=== PATIENT | female | born 1950 | race Caucasian/White ===

== ENCOUNTER → 2018-10-19 15:58 | Outpatient (CLI) | payer MEDICARE, OTHER, SELFPAY ==
--- NOTE | 2018-10-19 | DI.MG.S_ITS ---
BILATERAL DIGITAL SCREENING MAMMOGRAM 3D/2D WITH CAD: 10/19/2018 CLINICAL: Routine screening. Comparison is made to exams dated: 10/15/2017 mammogram - [facility], 10/06/2016 mammogram, and 10/02/2015 mammogram - [facility]. The tissue of both breasts is extremely dense, which lowers the sensitivity of mammography. Current study was also evaluated with a Computer Aided Detection (CAD) system. No significant masses, calcifications, or other findings are seen in either breast. There has been no significant interval change. IMPRESSION: NEGATIVE There is no mammographic evidence of malignancy. A 1 year screening mammogram is recommended. This exam was interpreted at Station ID: [id number]. NOTE: For mammograms, a report in lay terms will be sent to the patient. Approximately 15% of breast malignancies will not be visualized mammographically. In the management of a palpable breast mass, a negative mammogram must not discourage biopsy of a clinically suspicious lesion. Electronically Signed By: Barbie rosenberg/terrie:10/19/2018 16:49:56 letter sent: Normal Exam ACR BI-RADS Category 1: Negative [id number]
--- NOTE | 2018-11-03 08:36 | ONC.SCHED ---
tried calling patient 3 times, number is disconnected
== END ==
PROVIDERS: Family Provider Internal Medicine; PCP Internal Medicine; Visit Provider Internal Medicine
DX: Z12.31 Encounter for screening mammogram for malignant neoplasm of breast (principal)
CPT/HCPCS: 77063; 77067

== ENCOUNTER → 2019-12-12 09:01 | Outpatient (CLI) | payer MEDICARE, OTHER, SELFPAY ==
[2019-12-12 10:26] LABS: BUN Creatinine Ratio 22.1 (6-22); Blood Urea Nitrogen 15 mg/dL (7-17); Calcium 9.6 mg/dL (8.4-10.2); Carbon Dioxide 29 mmol/L (22-32); Chloride 103 mmol/L (98-107); Cholesterol 200 mg/dL (140-199); Estimated Glomerular Filt Rate > 60.0 mL/min (>60); Glucose 86 mg/dL (80-110); HDL Cholesterol 90 mg/dL (40-60); HEMOLYSIS < 15 (0-50); LDL Cholesterol Calculated 98 mg/dL (<100); Potassium 4.1 mmol/L (3.4-5.1); Sodium 139 mmol/L (137-145); Triglycerides 58 mg/dL (35-150)
== END ==
PROVIDERS: Family Provider Internal Medicine; PCP Internal Medicine; Referring Provider Internal Medicine; Visit Provider Internal Medicine
DX: I10 Essential (primary) hypertension (principal)
CPT/HCPCS: 36415; 80048; 80061

== ENCOUNTER → 2019-12-27 13:30 | Oncology outpatient (ONC) | payer MEDICARE, OTHER, SELFPAY ==
[2018-11-21 13:01] VITALS: BP 127/83; PULSE 72; RESP 12; TEMP 36.9; O2SAT 98
[2018-11-21] MEDS: ZOLEDRONIC ACID 5 MG in SODIUM CHLORIDE 0.9% 100 ML 318.75 ML IV (13:01)
[2019-12-27 13:21] VITALS: PULSE 77; RESP 18; TEMP 36.7; O2SAT 98
[2019-12-27] MEDS: ZOLEDRONIC ACID 5 MG in SODIUM CHLORIDE 0.9% 100 ML 318.75 ML IV (13:37)
[2019-12-27 14:12] VITALS: BP 154/85
--- NOTE | 2019-12-28 15:53 | PC.NURSE ---
Pt called to let us know that she has 2 hematomas from IV start attempt, she reported no s/s of infection, no redness, swelling, just tenderness. This RN instructed her to f/u with us or provider if her condition worsens.
== END ==
PROVIDERS: Family Provider Internal Medicine; PCP Internal Medicine; Visit Provider Internal Medicine
DX: M81.0 Age-related osteoporosis without current pathological fracture (principal)
CPT/HCPCS: 96365; J3489

== ENCOUNTER → 2020-01-17 15:41 | Outpatient (CLI) | payer MEDICARE, OTHER, SELFPAY ==
--- NOTE | 2020-01-17 | DI.MG.S_ITS ---
BILATERAL DIGITAL SCREENING MAMMOGRAM 3D/2D WITH CAD: 01/17/2020 CLINICAL: Routine screening. Comparison is made to exams dated: 10/19/2018 mammogram, 10/15/2017 mammogram - [facility], and 10/06/2016 mammogram - [facility]. The tissue of both breasts is extremely dense, which lowers the sensitivity of mammography. Current study was also evaluated with a Computer Aided Detection (CAD) system. There is a focal asymmetry in the left breast at 6 o'clock anterior depth. No other significant masses, calcifications, or other findings are seen in either breast. IMPRESSION: INCOMPLETE: NEEDS ADDITIONAL IMAGING EVALUATION The focal asymmetry in the left breast is indeterminate. Additional views with possible ultrasound are recommended. This exam was interpreted at Station ID: [id number]. NOTE: For mammograms, a report in lay terms will be sent to the patient. Approximately 15% of breast malignancies will not be visualized mammographically. In the management of a palpable breast mass, a negative mammogram must not discourage biopsy of a clinically suspicious lesion. Electronically Signed By: Barbie Vidales M.D. lk/:01/18/2020 16:36:06 letter sent: Additional Imaging Needed ACR BI-RADS Category 0: Incomplete [id number]
== END ==
PROVIDERS: Family Provider Internal Medicine; PCP Internal Medicine; Referring Provider Internal Medicine; Visit Provider Internal Medicine
DX: Z12.31 Encounter for screening mammogram for malignant neoplasm of breast (principal)
CPT/HCPCS: 77063; 77067

== ENCOUNTER → 2020-02-07 13:40 | Outpatient (CLI) | payer MEDICARE, OTHER, SELFPAY ==
--- NOTE | 2020-02-07 | DI.MG.S_ITS ---
UNILATERAL LEFT DIGITAL DIAGNOSTIC MAMMOGRAM 3D/2D WITH ADDITIONAL VIEWS: 02/07/2020 CLINICAL: Additional evaluation requested from prior study. Comparison is made to exams dated: 01/17/2020 mammogram, 10/19/2018 mammogram, and 10/15/2017 mammogram - [facility]. The tissue of left breast is extremely dense, which lowers the sensitivity of mammography. The previously seen focal asymmetry in the left breast is no longer visualized, presumably secondary to superimposed fibroglandular breast tissue on the prior exam. No significant masses, calcifications, or other findings are seen in the breast. IMPRESSION: NEGATIVE There is no mammographic evidence of malignancy. A 1 year screening mammogram is recommended. This exam was interpreted at Station ID: [id number]. NOTE: For mammograms, a report in lay terms will be sent to the patient. Approximately 15% of breast malignancies will not be visualized mammographically. In the management of a palpable breast mass, a negative mammogram must not discourage biopsy of a clinically suspicious lesion. Electronically Signed By: Emir garcia/terrie:02/07/2020 14:37:08 letter sent: Normal Exam ACR BI-RADS Category 1: Negative [id number]
== END ==
PROVIDERS: Family Provider Internal Medicine; PCP Internal Medicine; Referring Provider Internal Medicine; Visit Provider Internal Medicine
DX: R92.8 Other abnormal and inconclusive findings on diagnostic imaging of breast (principal)
CPT/HCPCS: 77065; G0279

== ENCOUNTER → 2020-05-04 15:06 | Outpatient (CLI) | payer MEDICARE, OTHER, SELFPAY ==
--- NOTE | 2020-05-04 15:08 | DI.RAD.S_ITS ---
PROCEDURE: XR HIP W PEL IF DONE RT 2V INDICATIONS: hip djd TECHNIQUE: 2 views of the hip were acquired. COMPARISON: None. FINDINGS: Bones: No fractures or dislocations. No suspicious bony lesions. The visualized pelvic ring appears intact. Soft tissues: No suspicious soft tissue calcifications or masses. IMPRESSION: No fracture. No osseous lesion. If symptoms and/or clinical suspicion for pathology persists, further assessment with repeat radiographs (7-10 days) or advanced imaging (e.g. CT, MRI or bone scan) may be helpful. Dictated by: Rosio Henderson MD, PhD on 05/04/2020 at 15:19 Approved by: Rosio Henderson MD, PhD on 05/04/2020 at 15:20
== END ==
PROVIDERS: Family Provider Internal Medicine; PCP Internal Medicine; Referring Provider Physical Medicine & Rehabilitation; Visit Provider Physical Medicine & Rehabilitation
DX: M16.11 Unilateral primary osteoarthritis, right hip (principal)
CPT/HCPCS: 73502

== ENCOUNTER 2020-05-07 11:11 | Outpatient (CLI) | payer MEDICARE, OTHER, SELFPAY ==
[2020-05-07] VITALS (9 sets, daily range): BP systolic 151–180; BP diastolic 65–93; PULSE 68–86; RESP 12–20; TEMP 36.8; O2SAT 97–100
--- NOTE | 2020-05-07 11:14 | DI.RAD.S_ITS ---
PROCEDURE: PAIN L/S TRANSFORAMINAL INJECT INDICATIONS: SPONDYLOSIS COMPARISON: None. FINDINGS: Fluoroscopic spot filming was performed to verify placement of spinal needles at the right L4-5 level(s), as labeled on the films. Appropriate location(s) of the needle tip(s) was confirmed by injection of iodinated contrast. IMPRESSION: Successful needle tip localization for transforaminal right-sided epidural steroid injection at L4-L5. Dictated by: eGoffrey Hill M.D. on 05/07/2020 at 14:17 Approved by: Geoffrey Hill M.D. on 05/07/2020 at 14:17
[2020-05-07 13:05] LABS: COVID19 -Nasal RAPID Negative (Negative)
[2020-05-07] MEDS: DEXAMETHASONE 10 MG/ML VIAL 20 MG INJ (13:26)
[2020-05-07] MEDS: fentaNYL 100 MCG/2 ML INJ 50 MCG IV (13:26)
[2020-05-07] MEDS: BUPIVACAINE 0.25% (PF) VIAL 2 ML INJ (13:26)
[2020-05-07] MEDS: BETAMETHASONE 30 MG/5 ML MDV 6 MG INJ (13:26)
--- NOTE | 2020-05-07 13:41 | P.PCN_ITS ---
Date/Time/Diagnoses Date of procedure: 05/07/20 Time of procedure: 13:42 Pre-procedure diagnosis: 1. FORAMINAL STENOSIS WITH LE SYMPTOMS Post-procedure diagnosis: same Procedure Notes Procedure: 1. FLUOROSCOPICALLY GUIDED CONTRAST CONTROLLED TRANSFORAMINAL EPIDURAL STEROID INJECTION - RIGHT L4/5 TFESI Indications: Constanza is referred by Dr. Jones for treatment of Foraminal Stenosis with Right LE Symptoms Physician: Flaco Kirkland Total Fluoroscopy time (seconds): 7 Total sedation minutes: 10 Complications: none Procedure in detail & Post-procedure care: FINDINGS Foraminal Nerve Root Compression secondary to disc disease and facet hypertrophy DESCRIPTION OF PROCEDURE Following review of allergy and review of potential side effects and complications, including, but not necessarily limited to, infection, allergic reaction, local tissue breakdown, stroke, temporary or permanent nerve injury, paralysis, and possible , the patient indicated that the patient understood and agreed to proceed. An informed consent document was signed by the patient, witnessed by a nurse, and placed in the patient's chart. Additionally, other treatment options including medications, modalities, and physical therapy were reviewed with the patient. After review of previous anaesthesic history and IV conscious sedation the patient was deemed safe to proceed with today?s procedure with IV conscious sedation as ASA class II designation. Safety time-out was performed to confirm patient ID, procedure to be performed and site of procedure. IV sedation was accomplished with a combination of 2mg of Versed and 50mcg of Fentanyl was administered by the RN after DO order, titrated to patient comfort during the course of the procedure while the patient remained responsive to all verbal co mmands In the prone position following sterile prep and drape of the lumbar region, the Right L4/5 posterior neuroforamen was identified fluoroscopically. The skin was anesthetized via a 25-gauge 1.5-inch needle with 1% lidocaine solution. At this point, a 25-gauge 3.5-inch spinal needle was atraumatically introduced and advanced under fluoroscopic guidance through the posterior Right L4/5 n euroforamen to approximately the anterior aspect of the canal. Depth was confirmed on lateral view. Following negative aspiration, injection of approximately 1.5cc of Isovue 200 under live fluoroscopy in the AP view confirmed excellent flow along the nerve root, into the epidural space without vascular or intrathecal uptake observed Radiological data, including multiple fluoroscopic views of the lumbosacral spine, reveal a spinal needle at the right L4/5 posterior neuroforamen. Subsequent views show flow of contrast material flowing superiorly and inferiorly along the nerve root confirming epidural flow. Subsequently, a test dose of 1.5 cc of 1% lidocaine solution was administered and patient was observed for two minutes for signs or symptoms of complications, including abdominal pain, shortness of breath, bilateral upper or lower extremity weakness, nausea and vomiting, prior to steroid injection. At this point, a total of 3cc or 20mg of dexamethasone and 6mg of betamethasone was injected without incident. The procedure tolerated the procedure well without signs or symptoms of complications prior to transfer to the recovery area continued monitoring without incident. The patient was then transferred to the recovery area where they were observed for an appropriate time after the injection. The patient reported a VAS score of 7 prior to the procedure and a post-p rocedure VAS of 1. POST OP INSTRUCTIONS The patient was provided a Pain Log to continue to record their response to the target-specific procedure prior to follow-up visit with their referring physician. Additionally, specific post-injection care instructions and a contact number to our office were provided if concerns arise regarding possible complications associated with the procedure are suspected.
[2020-05-07] MEDS: IOPAMIDOL 15 ML VIAL 3 ML INJ (16:32)
[2020-05-07] MEDS: MIDAZOLAM 5 MG/5 ML VIAL IV (16:33)
== END 2020-05-07 14:07 | disposition home or self-care (01) ==
LOC: RAD 11:13
PROVIDERS: Family Provider Internal Medicine; PCP Internal Medicine; Referring Provider Internal Medicine; Visit Provider Physical Medicine & Rehabilitation
DX: M48.061 Spinal stenosis, lumbar region without neurogenic claudication (principal); M51.16 Intervertebral disc disorders with radiculopathy, lumbar region; Z11.59 Encounter for screening for other viral diseases
CPT/HCPCS: 64483; 87635; 99152; J0702; J1100; J2250; J3010

== ENCOUNTER → 2020-08-06 10:50 | Outpatient (CLI) | payer MEDICARE, OTHER, SELFPAY ==
--- NOTE | 2020-08-06 10:54 | DI.RAD.S_ITS ---
PROCEDURE: XR SHOULDER RT MIN 2V INDICATIONS: shoulder impingement TECHNIQUE: 3 views of the shoulder were acquired. COMPARISON: [facility] [place], CR, SHOULDER MIN 2VW (RT), 11/08/2014, 9:47. FINDINGS: Bones: No fractures or dislocations. No suspicious bony lesions. Visualized ribs appear intact. Soft tissues: No suspicious soft tissue calcifications. IMPRESSION: Unremarkable examination. If the patient's pain or other symptoms persist, consider further evaluation with MRI Dictated by: Frandy Hewitt M.D. on 08/06/2020 at 12:29 Approved by: Frandy Hewitt M.D. on 08/06/2020 at 12:36
--- NOTE | 2020-08-06 10:54 | DI.RAD.S_ITS ---
PROCEDURE: XR KNEE RT 3V INDICATIONS: knee djd TECHNIQUE: 3 views of the knee were acquired. COMPARISON: None. FINDINGS: Bones: No fractures or dislocations. No suspicious bony lesions. No definite joint space narrowing. Soft tissues: No joint effusion. No suspicious soft tissue calcifications. IMPRESSION: Minimal degenerative changes. If the patient's pain or other symptoms persist, consider further evaluation with MRI Dictated by: Frandy Hewitt M.D. on 08/06/2020 at 12:36 Approved by: Frandy Hewitt M.D. on 08/06/2020 at 12:37
== END ==
PROVIDERS: Family Provider Internal Medicine; PCP Internal Medicine; Referring Provider Physical Medicine & Rehabilitation; Visit Provider Physical Medicine & Rehabilitation
DX: M75.41 Impingement syndrome of right shoulder (principal); M17.11 Unilateral primary osteoarthritis, right knee
CPT/HCPCS: 73030; 73562

== ENCOUNTER → 2020-10-29 08:43 | Outpatient (CLI) | payer MEDICARE, OTHER, SELFPAY ==
[2020-10-29 12:18] LABS: COVID19 -Nasal RAPID Negative (Negative)
== END ==
PROVIDERS: Family Provider Internal Medicine; PCP Internal Medicine; Visit Provider Physical Medicine & Rehabilitation
DX: Z20.822 Contact with and (suspected) exposure to COVID-19 (principal)
CPT/HCPCS: 87635; C9803

== ENCOUNTER 2020-10-31 12:23 | Outpatient (CLI) | payer MEDICARE, OTHER, SELFPAY ==
[2020-10-31] VITALS (8 sets, daily range): BP systolic 124–185; BP diastolic 54–92; PULSE 77–86; RESP 13–20; TEMP 36; O2SAT 95–100
--- NOTE | 2020-10-31 12:25 | DI.RAD.S_ITS ---
PROCEDURE: PAIN SI JOINT INJECTION INDICATIONS: SACROILIAC DISORDER COMPARISON: [facility], XA, PAIN L/SI FACET INJ/BLK 1STL, 10/31/2020, 13:49. FINDINGS: On this intraprocedural image, there is a spinal needle seen overlying the inferior aspect of the right sacroiliac joint. Appropriate position of the tip of the needle was confirmed by injection of a small amount of iodinated contrast. IMPRESSION: Intraprocedural examination within normal limits. Dictated by: Kalyan Snider M.D. on 10/31/2020 at 13:46 Approved by: Kalyan Snider M.D. on 10/31/2020 at 13:47
--- NOTE | 2020-10-31 13:24 | DI.RAD.S_ITS ---
PROCEDURE: PAIN L/SI FACET INJ/BLK 1STL INDICATIONS: SPONDYLOSIS COMPARISON: [facility], XA, PAIN SI JOINT INJECTION, 10/31/2020, 13:42. [facility], XA, PAIN L/S TRANSFORAMINAL INJECT, 05/07/2020, 14:31. FINDINGS: Fluoroscopic spot filming was performed to verify placement of a spinal needle at the L5-S1 level, as labeled on the films. Appropriate location of the needle tip was confirmed by injection of iodinated contrast. IMPRESSION: No significant intraprocedural abnormality. Dictated by: Kalyan Snider M.D. on 10/31/2020 at 13:47 Approved by: Kalyan Snider M.D. on 10/31/2020 at 13:48
[2020-10-31] MEDS: fentaNYL 100 MCG/2 ML INJ 50 MCG IV (13:35)
[2020-10-31] MEDS: MIDAZOLAM 5 MG/5 ML VIAL IV (13:36)
[2020-10-31] MEDS: IOPAMIDOL 15 ML VIAL 3 ML INJ (13:40)
[2020-10-31] MEDS: methylPREDNISolone acetate 80 MG/ML VIAL INJ (13:40)
[2020-10-31] MEDS: BUPIVACAINE 0.5% (PF) VIAL 2 ML INJ (13:40)
[2020-10-31] MEDS: BETAMETHASONE 30 MG/5 ML MDV 6 MG INJ (13:43)
--- NOTE | 2020-10-31 13:57 | PM.PROC.IR.1 ---
Date/Time/Diagnoses Date of procedure: 10/31/20 Time of procedure: 13:57 Pre-procedure diagnosis: Sacroiliac Joint Pain/DJD Post-procedure diagnosis: same Procedure Notes Procedure: Fluoroscopically guided contrast controlled left sacroiliac joint injection Indications: Constanza is referred by Dr. Jones for treatment of left sacroiliac joint DJD Physician: Flaco Kirkland Total Fluoroscopy time (seconds): 18 Total sedation minutes: 16 Complications: none Procedure in detail & Post-procedure care: DESCRIPTION OF PROCEDURE Fluoroscopic guided, contrast controlled left sacroiliac joint injection Following review of allergies and review of potential side effects and complications, including, but not necessarily limited to, infection, allergic reaction, local tissue breakdown, temporary as well as permanent nerve injury, paralysis, stroke and possible , the patient indicated that they understood and agreed to proceed. An informed consent was signed by the patient, witnessed by a nurse, and placed in the patient's chart. Additionally, other treatment options including modalities, medications, and physical therapy were reviewed with the patient. After review of previous anaesthesic history and IV conscious sedation the patient was deemed safe to proceed with today?s procedure with IV conscious sedation as ASA class II designation. Safety time-out was performed to confirm patient ID, procedure to be performed and site of procedure. IV sedation was accomplished with a combination of 3mg of Versed and 50mcg of Fentanyl administered by the RN after DO order, titrated to patient comfort during the course of the procedure while the patient remained responsive to all verbal commands. In the prone position following sterile prep and drape of the pelvic region, the hyper lucency on in the inferior aspect of the left sacroiliac joint was identified fluoroscopically the skin was anesthetized be a 25 gauge 1 eventual with approximately 2cc of 1% lidocaine solution. At this point, a 22 gauge 3inch spinal needle was atraumatically introduced and advanced under fluoroscopic guidance into the inferior aspect of the left sacroiliac joint. Following negative aspiration, approximately 0.3cc of Isovue-300 was injected confirming intra-articular placement without vascular uptake. Radiographic data, including multiple fluoroscopic views of the pelvis, reveals a spinal needle in the left sacroiliac joint hyper lucent zone. Subsequent view show flow contrast tear superiorly and inferiorly within the joint capsule without vascular intrathecal uptake. At this point a total of 1cc or 0.5% Marcaine was combined with 1cc of 80mg of depo medrol was injected without incident. The patient tolerated the procedure well without signs or symptoms of complications prior to transfer to the recovery area for further monitoring. The patient was then transferred to the recovery area with a bur observed for an appropriate time after the injection. The patient reverted a vas score of 7 prior to the procedure and postprocedure vas of 1. POSTOP INSTRUCTIONS The patient was provided with a pain like to continue to record the patient's response to the target specific procedure prior to the patient's follow-up visit with the referring physician. Additionally, specific post injection care instructions and a contact number to our office were provided if concerns arise regarding the possible complications associated with procedure are suspected.
--- NOTE | 2020-10-31 13:59 | P.PCN_ITS ---
Date/Time/Diagnoses Date of procedure: 10/31/20 Time of procedure: 13:59 Pre-procedure diagnosis: 1. FACET ARTHROPATHY, 2. AXIAL LBP, 3. MULTILEVEL DDD Post-procedure diagnosis: same Procedure Notes Procedure: 1. FLUOROSCOPICALLY GUIDED CONTRAST CONTROLLED FACET JOINT INJECTIONS RIGHT L5/S1 Indications: Constanza is referred by Dr. Jones for treatment of Axial LBP Physician: Flaco Kirkland Total Fluoroscopy time (seconds): 18 Total sedation minutes: 16 Complications: none Procedure in detail & Post-procedure care: FINDINGS Multilevel Facet Arthropathy with Clinically significant axial LBP DESCRIPTION OF PROCEDURE Fluoroscopically guided, contrast-controlled right L5/S1 facet joint injections. Following review of allergy and review of potential side effects and compli cations, including, but not necessarily limited to, infection, allergic reaction, local tissue breakdown, stroke, temporary or permanent nerve injury, paralysis, and possible , the patient indicated that the patient understood and agreed to proceed. An informed consent document was signed by the patient, witnessed by a nurse, and placed in the patient's chart. Additionally, other treatment options including medications, modalities, and physical therapy were reviewed with the patient. After review of previous anaesthesic history and IV conscious sedation the patient was deemed safe to proceed with today?s procedure with IV conscious sedation as ASA class II designation. Safety time-out was performed to confirm patient ID, procedure to be performed and site of procedure. IV sedation was accomplished with a combination of 3mg of Versed and 50mcg of Fentanyl was administered by the RN after DO order, titrated to patient comfort during the course of the procedure while the patient remained responsive to all verbal commands. In the prone position, following sterile prep and drape of the lumbar region, the posterior aspect of the right L5/S1 facet joints were identified fluoro scopically. The skin was anesthetized via a 25-gauge 1.5-inch needle with 1% lidocaine solution into the corresponding facet joints. At this point, a 22- gauge 3.5-inch spinal needle was atraumatically introduced and advanced under fluoroscopic guidance into the corresponding facet joints. Following negative aspiration, injections of approximately 0.2-cc of Isovue 200 confirmed interarticular placement without vascular uptake. Radiological data, including multiple fluoroscopic views of the lumbosacral spine, reveal a spinal needle at the right L5/S1 facet joint. Subsequent views show flow of contrast material both superiorly and inferiorly within the joint space without vascular or intrathecal uptake. At this point, a total of 0.5cc including a mixture of 0.25cc Marcaine and 0.25c c betamethasone was injected without complication into each of the corresponding facet joints. The procedure tolerated the procedure well without signs or symptoms of complications prior to transfer to the recovery area continued monitoring without incident. The patient was then transferred to the recovery area where they were observed for an appropriate period of time after the injection. The patient reported a VAS score of 7 prior to the procedure and a post-procedure VAS of 0. POST OP INSTRUCTIONS The patient was provided a Pain Log to continue to record their response to the target-specific procedure prior to follow-up visit with their referring physician. Additionally, specific post-injection care instructions and a contact number to our office were provided if concerns arise regarding possible complications associated with the procedure are suspected.
== END 2020-10-31 14:17 | disposition home or self-care (01) ==
LOC: RAD 12:25
PROVIDERS: Family Provider Internal Medicine; PCP Internal Medicine; Referring Provider Internal Medicine; Visit Provider Physical Medicine & Rehabilitation
DX: M47.817 Spondylosis without myelopathy or radiculopathy, lumbosacral region (principal); M53.3 Sacrococcygeal disorders, not elsewhere classified; M46.1 Sacroiliitis, not elsewhere classified; M51.37 Other intervertebral disc degeneration, lumbosacral region; M54.5 Low back pain
CPT/HCPCS: 27096; 64493; 99152; J0702; J1040; J2250; J3010

== ENCOUNTER → 2020-11-04 15:57 | Outpatient (CLI) | payer MEDICARE, OTHER, SELFPAY ==
[2020-11-04 16:33] LABS: Add Manual Diff / Slide Review NO; Basophils Absolute Auto 0 /uL (0-100); Basophils Percent Auto 0.4 % (0-2); Eosinophils Absolute Auto 100 /uL (0-450); Eosinophils Percent Auto 0.6 % (2-4); Hematocrit 41.6 % (36-46); Hemoglobin 13.9 g/dL (12.0-16.0); Lymphocytes Absolute Auto 2300 /uL (1100-4500); Lymphocytes Percent Auto 18.9 % (25-40); Mean Corpuscular HGB Conc 33.5 % (30-36); Mean Corpuscular Hemoglobin 31.7 PG (26-34); Mean Corpuscular Volume 94.5 fL (80-100); Monocytes Absolute Auto 700 /uL (0-900); Monocytes Percent Auto 6.1 % (3-14); Neutrophils Absolute Auto 8800 /uL (1500-7000); Platelet Count 230 X10^3/uL (150-400); Red Cell Distribution Width 13.2 % (11.6-14.8)
[2020-11-04 16:53] LABS: C-Reactive Protein Quant < 0.5 mg/dL (<1.0)
[2020-11-04 17:26] LABS: Erythrocyte Sedimentation Rate 5 MM/HR (0-20)
== END ==
PROVIDERS: Family Provider Internal Medicine; PCP Internal Medicine; Referring Provider Physical Medicine & Rehabilitation; Visit Provider Physical Medicine & Rehabilitation
DX: M25.551 Pain in right hip (principal); M51.26 Other intervertebral disc displacement, lumbar region; M47.817 Spondylosis without myelopathy or radiculopathy, lumbosacral region; M53.3 Sacrococcygeal disorders, not elsewhere classified; M70.61 Trochanteric bursitis, right hip; M70.62 Trochanteric bursitis, left hip
CPT/HCPCS: 36415; 85025; 85651; 86140; 99214

== ENCOUNTER → 2020-11-13 12:18 | Outpatient (CLI) | payer MEDICARE, OTHER, SELFPAY ==
--- NOTE | 2020-11-13 | DI.MRI.S_ITS ---
PROCEDURE: MR LUMBAR SPINE WO CON INDICATIONS: Disc displacement Pain in right hip Osteoporosis TECHNIQUE: Noncontrast sagittal T1 spin echo and T2 fast echo, sagittal STIR, axial T1 and T2 fast spin echo through the lumbar spine. In cases with scoliosis, additional coronal T2 fast spin echo may be performed. COMPARISON: [facility], MR, L-SPINE WITHOUT CONTRAST, 08/26/2017, 20:06. FINDINGS: Image quality: Excellent. Alignment and Curvature: There is trace retrolisthesis of L2 on L3, L4 on L5. Bone Marrow: Marrow is of normal overall signal. Moderate reactive endplate changes are present at L2-3, minimal throughout the remainder of the lumbar spine. Small Schmorl's nodes are noted along the endplates of L2-3 and L5-S1. No acute vertebral body compression fractures. Spinal Cord: Conus medullaris terminates at the L1 level. Visualized cord demonstrates normal signal and size. 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 It is stable. Paraspinous Soft Tissues: No paravertebral masses. Discs: Severe desiccation is present at L2-3, L5-S1, overall moderate to severe throughout the remainder of the lumbar spine. L1-L2: No disc bulge, spinal stenosis or foraminal narrowing. Mild facet and ligamentum flavum hypertrophy. No interval change. L2-L3: Mild disc bulge with asymmetric right posterior lateral position extension to the right lateral recess and proximal right foramina, more prominent when compared to prior exam. Mild spinal stenosis, progressive. Moderate right foraminal narrowing is slightly progressive. Facet and ligamentum flavum hypertrophy are present. L3-L4: Mild disc bulge with mild spinal stenosis. Mild left foraminal narrowing with facet and ligamentum flavum hypertrophy and epidural lipomatosis. Appearance is relatively stable. L4-L5: Mild disc bulge with moderate spinal stenosis. Mild right and moderate to severe left foraminal narrowing, with the latter slightly progressive. Facet and ligamentum flavum hypertrophy are present. L5-S1: Mild disc bulge with minimal spinal stenosis. Moderate left and [id number] right foraminal narrowing with facet hypertrophy. No significant interval change. IMPRESSION: 1. Multilevel degenerative changes with areas of interval progression as above. 2. Foraminal narrowing is most notable at L5-S1 secondary to facet/ligamentum flavum arthropathy. 3. Spinal stenosis is most prominent at L4-5 secondary to disc bulge with contributing effect of facet/ligamentum flavum arthropathy. Dictated by: Bernarda Davila M.D. on 11/13/2020 at 14:01 Approved by: Bernarda Davila M.D. on 11/13/2020 at 15:19
--- NOTE | 2020-11-13 12:19 | DI.MRI.S_ITS ---
PROCEDURE: MR PELIS WO/W CON INDICATIONS: R/o infection SI TECHNIQUE: Noncontrast coronal T1 spin echo and STIR, sagittal T1 spin echo with fat saturation and STIR, axial T1 spin echo and T2 fast spin echo with fat saturation. After the administration of contrast, axial/sagittal/coronal T1 spin echo with fat saturation through the sacroiliac joints. . COMPARISON: [facility], XA, PAIN SI JOINT INJECTION, 10/31/2020, 13:42. [facility], XA, PAIN L/SI FACET INJ/BLK 1STL, 10/31/2020, 13:49. FINDINGS: No sacroiliac joint effusions are seen. No periarticular soft tissue edema. Marrow fat signal intensity appears grossly preserved. There is no definite periarticular marrow edema. Chronic lumbar spondylosis and facet arthropathy. No suspicious enhancement identified. No soft tissue abscess is seen. Sacral neural foramen within normal limits. Intrapelvic contents grossly unremarkable. Subcutaneous soft tissues within normal limits. Normal muscle signal intensity. IMPRESSION: No specific MR evidence for osteomyelitis identified. No sacroiliac joint effusion. No periarticular soft tissue edema. Dictated by: Frandy Hewitt M.D. on 11/13/2020 at 14:24 Approved by: Frandy Hewitt M.D. on 11/13/2020 at 14:30
== END ==
PROVIDERS: Family Provider Internal Medicine; PCP Internal Medicine; Referring Provider Internal Medicine; Visit Provider Physical Medicine & Rehabilitation
DX: M25.551 Pain in right hip (principal); M51.26 Other intervertebral disc displacement, lumbar region; M85.852 Other specified disorders of bone density and structure, left thigh; Z78.0 Asymptomatic menopausal state; M47.816 Spondylosis without myelopathy or radiculopathy, lumbar region; M48.07 Spinal stenosis, lumbosacral region; M48.061 Spinal stenosis, lumbar region without neurogenic claudication; Z82.62 Family history of osteoporosis
CPT/HCPCS: 72148; 72197; 77080

== ENCOUNTER → 2020-11-14 12:25 | Outpatient (CLI) | payer MEDICARE, OTHER, SELFPAY ==
[2020-11-14 13:44] LABS: Add Manual Diff / Slide Review NO; Basophils Absolute Auto 100 /uL (0-100); Basophils Percent Auto 0.8 % (0-2); Eosinophils Absolute Auto 100 /uL (0-450); Eosinophils Percent Auto 1.2 % (2-4); Hematocrit 40.2 % (36-46); Hemoglobin 13.4 g/dL (12.0-16.0); Lymphocytes Absolute Auto 2500 /uL (1100-4500); Lymphocytes Percent Auto 24.5 % (25-40); Mean Corpuscular HGB Conc 33.3 % (30-36); Mean Corpuscular Hemoglobin 31.6 PG (26-34); Monocytes Absolute Auto 700 /uL (0-900); Monocytes Percent Auto 6.4 % (3-14); Neutrophils Absolute Auto 6900 /uL (1500-7000); Neutrophils Percent Auto 67.1 % (50-75); Platelet Count 257 X10^3/uL (150-400); Red Blood Cell Count 4.23 X10^6/uL (4.0-5.2); Red Cell Distribution Width 13.6 % (11.6-14.8); White Blood Cell Count 10.3 X10^3/uL (4.5-11.0)
[2020-11-14 14:01] LABS: Erythrocyte Sedimentation Rate 4 MM/HR (0-20)
== END ==
PROVIDERS: Family Provider Internal Medicine; PCP Internal Medicine; Referring Provider Physical Medicine & Rehabilitation; Visit Provider Physical Medicine & Rehabilitation
DX: I10 Essential (primary) hypertension (principal); M25.551 Pain in right hip
CPT/HCPCS: 36415; 85025; 85651

== ENCOUNTER → 2021-01-28 11:37 | Outpatient (CLI) | payer MEDICARE, OTHER, SELFPAY ==
[2021-01-28 14:47] LABS: COVID19 -Nasal RAPID Negative (Negative)
== END ==
PROVIDERS: Family Provider Internal Medicine; PCP Internal Medicine; Visit Provider Physical Medicine & Rehabilitation
DX: Z20.822 Contact with and (suspected) exposure to COVID-19 (principal)
CPT/HCPCS: 87635; C9803

== ENCOUNTER 2021-01-30 08:16 | Outpatient (CLI) | payer MEDICARE, OTHER, SELFPAY ==
[2021-01-30] VITALS (8 sets, daily range): BP systolic 126–170; BP diastolic 60–91; PULSE 64–77; RESP 12–20; TEMP 35.8–36.3; O2SAT 98–100
--- NOTE | 2021-01-30 08:17 | DI.RAD.S_ITS ---
PROCEDURE: PAIN L/S TRANSFORAMINAL INJECT INDICATIONS: SPONDYLOSIS COMPARISON: [facility], , PAIN L/S TRANSFORAMINAL INJECT, 05/07/2020, 14:31. FINDINGS: Fluoroscopic spot filming was performed to verify placement of spinal needles at the L2-L3 level(s), as labeled on the films. Appropriate location(s) of the needle tip(s) was confirmed by injection of iodinated contrast. Dictated by: Frandy Hewitt M.D. on 01/30/2021 at 12:00 Approved by: Frandy Hewitt M.D. on 01/30/2021 at 12:04
[2021-01-30] MEDS: MIDAZOLAM 5 MG/5 ML VIAL IV (09:09)
[2021-01-30] MEDS: fentaNYL 100 MCG/2 ML INJ 50 MCG IV (09:09)
[2021-01-30] MEDS: BUPIVACAINE 0.25% (PF) VIAL 2 ML INJ (09:14)
[2021-01-30] MEDS: IOPAMIDOL 15 ML VIAL 3 ML INJ (09:14)
[2021-01-30] MEDS: BETAMETHASONE 30 MG/5 ML MDV 6 MG INJ (09:14)
[2021-01-30] MEDS: DEXAMETHASONE 10 MG/ML VIAL 20 MG INJ (09:15)
--- NOTE | 2021-01-30 09:28 | P.PCN_ITS ---
Date/Time/Diagnoses Date of procedure: 01/30/21 Time of procedure: 09:28 Pre-procedure diagnosis: 1. FORAMINAL STENOSIS WITH LE SYMPTOMS Post-procedure diagnosis: same Procedure Notes Procedure: 1. FLUOROSCOPICALLY GUIDED CONTRAST CONTROLLED TRANSFORAMINAL EPIDURAL STEROID INJECTION - RIGHT L2/3 TFESI Indications: Constanza is referred by Dr. Jones for treatment of Foraminal Stenosis with right LE Symptoms Physician: Flaco Kirkland Total Fluoroscopy time (seconds): 8 Total sedation minutes: 12 Complications: none Procedure in detail & Post-procedure care: FINDINGS Foraminal Nerve Root Compression secondary to disc disease and facet hypertrophy DESCRIPTION OF PROCEDURE Following review of allergy and review of potential side effects and complications, including, but not necessarily limited to, infection, allergic reaction, local tissue breakdown, stroke, temporary or permanent nerve injury, paralysis, and possible , the patient indicated that the patient understood and agreed to proceed. An informed consent document was signed by the patient, witnessed by a nurse, and placed in the patient's chart. Additionally, other treatment options including medications, modalities, and physical therapy were reviewed with the patient. After review of previous anaesthesic history and IV conscious sedation the patient was deemed safe to proceed with today?s procedure with IV conscious sedation as ASA class II designation. Safety time-out was performed to confirm patient ID, procedure to be performed and site of procedure. IV sedation was accomplished with a combination of 2mg of Versed and 50mcg of Fentanyl was administered by the RN after DO order, titrated to patient comfort during the course of the procedure while the patient remained responsive to all verbal comm ands In the prone position following sterile prep and drape of the lumbar region, the right L2/3 posterior neuroforamen was identified fluoroscopically. The skin was anesthetized via a 25-gauge 1.5-inch needle with 1% lidocaine solution. At this point, a 25-gauge 3.5-inch spinal needle was atraumatically introduced and advanced under fluoroscopic guidance through the posterior right L2/3 neurof oramen to approximately the anterior aspect of the canal. Depth was confirmed on lateral view. Following negative aspiration, injection of approximately 1.5 cc of Isovue 200 under live fluoroscopy in the AP view confirmed excellent flow along the nerve root, into the epidural space without vascular or intrathecal uptake observed Radiological data, including multiple fluoroscopic views of the lumbosacral spine, reveal a spinal needle at the right L2/3 posterior neuroforamen. Subsequent views show flow of contrast material flowing superiorly and inferiorly along the nerve root confirming epidural flow. Subsequently, a test dose of 1.5 cc of 1% lidocaine solution was administered and patient was observed for two minutes for signs or symptoms of complications, including abdominal pain, shortness of breath, bilateral upper or lower extremity weakness, nausea and vomiting, prior to steroid injection. At this point, a total of 3cc or 20mg of dexamethasone and 6mg of betamethasone was injected without incident. The patient tolerated the procedure well without signs or symptoms of complications prior to transfer to the recovery area continued monitoring without incident. The patient was then transferred to the recovery area where they were observed for an appropriate time after the injection. The patient reported a VAS score of 7 prior to the procedure and a post-procedure VAS of 0. POST OP INSTRUCTIONS The patient was provided a Pain Log to continue to record their response to the target-specific procedure prior to follow-up visit with their referring physician. Additionally, specific post-injection care instructions and a contact number to our office were provided if concerns arise regarding possible complications associated with the procedure are suspected.
== END 2021-01-30 09:45 | disposition home or self-care (01) ==
LOC: RAD 08:16
PROVIDERS: Family Provider Internal Medicine; PCP Internal Medicine; Referring Provider Physical Medicine & Rehabilitation; Visit Provider Physical Medicine & Rehabilitation
DX: M48.061 Spinal stenosis, lumbar region without neurogenic claudication (principal); M51.16 Intervertebral disc disorders with radiculopathy, lumbar region
CPT/HCPCS: 64483; 99152; J0702; J1100; J2250; J3010

== ENCOUNTER → 2021-02-08 10:26 | Outpatient (CLI) | payer MEDICARE, OTHER, SELFPAY ==
[2021-02-08 10:54] LABS: Add Manual Diff / Slide Review NO; Basophils Absolute Auto 100 /uL (0-100); Eosinophils Absolute Auto 0 /uL (0-450); Eosinophils Percent Auto 0.9 % (2-4); Hematocrit 39.5 % (36-46); Hemoglobin 13.4 g/dL (12.0-16.0); Lymphocytes Absolute Auto 1500 /uL (1100-4500); Lymphocytes Percent Auto 29.3 % (25-40); Mean Corpuscular HGB Conc 33.9 % (30-36); Mean Corpuscular Hemoglobin 32.2 PG (26-34); Monocytes Absolute Auto 400 /uL (0-900); Monocytes Percent Auto 7.9 % (3-14); Neutrophils Absolute Auto 3100 /uL (1500-7000); Neutrophils Percent Auto 60.9 % (50-75); Platelet Count 207 X10^3/uL (150-400); Red Blood Cell Count 4.16 X10^6/uL (4.0-5.2); White Blood Cell Count 5.1 X10^3/uL (4.5-11.0)
[2021-02-08 12:51] LABS: COVID-19 CEPHEID PCR (VTM/NP) Negative (Negative)
== END ==
PROVIDERS: Physician Assistant; Family Provider Internal Medicine; PCP Internal Medicine; Referring Provider Otolaryngology Plastic Surgery within the Head & Neck; Visit Provider Otolaryngology Plastic Surgery within the Head & Neck
DX: Z01.818 Encounter for other preprocedural examination (principal); Z20.822 Contact with and (suspected) exposure to COVID-19
CPT/HCPCS: 36415; 85025; C9803; U0003

== ENCOUNTER → 2021-03-08 10:27 | Outpatient (CLI) | payer MEDICARE, OTHER, SELFPAY ==
--- NOTE | 2021-03-08 10:29 | DI.MG.S_ITS ---
BILATERAL DIGITAL SCREENING MAMMOGRAM 3D/2D WITH CAD: 03/08/2021 CLINICAL: Routine screening. Comparison is made to exams dated: 01/17/2020 mammogram, 10/19/2018 mammogram, 10/15/2017 mammogram, and 02/07/2020 mammogram - [facility]. The tissue of both breasts is extremely dense, which lowers the sensitivity of mammography. Current study was also evaluated with a Computer Aided Detection (CAD) system. No significant masses, calcifications, or other findings are seen in either breast. There has been no significant interval change. IMPRESSION: NEGATIVE There is no mammographic evidence of malignancy. A 1 year screening mammogram is recommended. This exam was interpreted at Station ID: [id number]. NOTE: For mammograms, a report in lay terms will be sent to the patient. Approximately 15% of breast malignancies will not be visualized mammographically. In the management of a palpable breast mass, a negative mammogram must not discourage biopsy of a clinically suspicious lesion. Electronically Signed By: Emir garcia/terrie:03/11/2021 08:28:15 letter sent: Normal Exam ACR BI-RADS Category 1: Negative 3341F
== END ==
PROVIDERS: Family Provider Internal Medicine; PCP Internal Medicine; Referring Provider Internal Medicine; Visit Provider Internal Medicine
DX: Z12.31 Encounter for screening mammogram for malignant neoplasm of breast (principal)
CPT/HCPCS: 77063; 77067

== ENCOUNTER → 2021-05-05 12:17 | Outpatient (CLI) | payer MEDICARE, OTHER, SELFPAY ==
--- NOTE | 2021-05-05 12:19 | DI.RAD.S_ITS ---
PROCEDURE: XR LUMBAR SPINE MIN 4V INDICATIONS: BACK PAIN TECHNIQUE: 4 views of the lumbar spine were acquired, including bilateral oblique views. COMPARISON: [facility], , L-SPINE 2-3 VIEWS, 02/08/2014, 12:14. FINDINGS: Bones: 5 nonrib-bearing vertebrae are present. There is mild levoscoliosis centered at L2 level. Grade 1 retrolisthesis of L2 on L3 is seen. Minimal retrolisthesis of T12 on L1 is also noted. Degenerative endplate changes and bilateral facet arthrosis throughout lumbar spine is seen more prominent at L4-5 and L5-S1 levels. No vertebral body compression fractures. No suspicious bony lesions. Soft tissues: Overlying bowel gas pattern is normal. No suspicious soft tissue calcifications. Oblique images: No pars defects. Bilateral bony foraminal stenosis at L4-5 and L5-S1 levels are seen. IMPRESSION: 1. Degenerative disc disease throughout lumbar spine. No acute compression fracture. 2. Grade 1 retrolisthesis at T12-L1 and L2-3 levels. No gross pars defects. Bilateral bony foraminal stenosis at L4-5 and L5-S1 levels are seen on oblique views. Dictated by: Nickolas Manzano M.D. on 05/05/2021 at 14:33 Approved by: Nickolas Manzano M.D. on 05/05/2021 at 14:35
== END ==
PROVIDERS: Family Provider Internal Medicine; PCP Internal Medicine; Referring Provider Physical Medicine & Rehabilitation; Visit Provider Physical Medicine & Rehabilitation
DX: M47.817 Spondylosis without myelopathy or radiculopathy, lumbosacral region (principal); M51.26 Other intervertebral disc displacement, lumbar region; M43.15 Spondylolisthesis, thoracolumbar region; M70.61 Trochanteric bursitis, right hip; M70.62 Trochanteric bursitis, left hip; M17.11 Unilateral primary osteoarthritis, right knee
CPT/HCPCS: 72110; 99214

== ENCOUNTER → 2021-05-13 10:57 | Outpatient (CLI) | payer MEDICARE, OTHER, SELFPAY ==
[2021-05-13 12:23] LABS: COVID19 -Nasal RAPID Negative (Negative)
== END ==
PROVIDERS: Family Provider Internal Medicine; PCP Internal Medicine; Referring Provider Physical Medicine & Rehabilitation; Visit Provider Physical Medicine & Rehabilitation
DX: Z20.822 Contact with and (suspected) exposure to COVID-19 (principal)
CPT/HCPCS: 87635; C9803

== ENCOUNTER 2021-05-15 14:06 | Outpatient (CLI) | payer MEDICARE, OTHER, SELFPAY ==
[2021-05-15] VITALS (7 sets, daily range): BP systolic 147–181; BP diastolic 73–96; PULSE 73–83; RESP 10–20; TEMP 36.8; O2SAT 98–100
--- NOTE | 2021-05-15 14:09 | DI.RAD.S_ITS ---
PROCEDURE: PAIN L/SI FACET INJ/BLK 1STL INDICATIONS: SPONDYLOSIS COMPARISON: [facility], MR, MR LUMBAR SPINE WO CON, 11/13/2020, 12:58. [facility], CR, XR LUMBAR SPINE MIN 4V, 05/05/2021, 12:18. FINDINGS: Fluoroscopic spot filming was performed to verify placement of spinal needles at the L1-L2, L2-L3 and L3-L4 level(s), as labeled on the films. Appropriate location(s) of the needle tip(s) was confirmed by injection of iodinated contrast. IMPRESSION: Fluoroscopy for pain management. Dictated by: Shine Ellison M.D. on 05/15/2021 at 16:21 Approved by: Shine Ellison M.D. on 05/15/2021 at 16:22
[2021-05-15] MEDS: MIDAZOLAM 5 MG/5 ML VIAL IV (14:55)
[2021-05-15] MEDS: fentaNYL 100 MCG/2 ML INJ 50 MCG IV (14:55)
[2021-05-15] MEDS: IOPAMIDOL 15 ML VIAL 3 ML INJ (15:02)
[2021-05-15] MEDS: BUPIVACAINE 0.5% (PF) VIAL 2 ML INJ (15:02)
[2021-05-15] MEDS: BETAMETHASONE 30 MG/5 ML MDV 12 MG INJ (15:03)
--- NOTE | 2021-05-15 15:17 | P.PCN_ITS ---
Date/Time/Diagnoses Date of procedure: 05/15/21 Time of procedure: 15:17 Pre-procedure diagnosis: 1. FACET ARTHROPATHY, 2. AXIAL LBP, 3. MULTILEVEL DDD Post-procedure diagnosis: same Procedure Notes Procedure: 1. FLUOROSCOPICALLY GUIDED CONTRAST CONTROLLED FACET JOINT INJECTIONS RIGHT L1/2, L2/3, L3/4 Indications: Constanza is referred by Dr. Jones for treatment of Axial LBP Physician: Flaco Kirkland Total Fluoroscopy time (seconds): 6 Total sedation minutes: 12 Complications: none Procedure in detail & Post-procedure care: FINDINGS Multilevel Facet Arthropathy with Clinically significant axial LBP DESCRIPTION OF PROCEDURE Fluoroscopically guided, contrast-controlled right L1/2, L2/3, L3/4 facet joint injections. Following review of allergy and review of potential side effects and complications, including, but not necessarily limited to, infection, allergic reaction, local tissue breakdown, stroke, temporary or permanent nerve injury, paralysis, and possible , the patient indicated that the patient understood and agreed to proceed. An informed consent document was signed by the patient, witnessed by a nurse, and placed in the patient's chart. Additionally, other treatment options including medications, modalities, and physical therapy were reviewed with the patient. After review of previous anaesthesic history and IV conscious sedation the patient was deemed safe to proceed with today?s procedure with IV conscious sedation as ASA class II designation. Safety time-out was performed to confirm patient ID, procedure to be performed and site of procedure. IV sedation was accomplished with a combination of 2mg of Versed and 50mcg of Fentanyl administered by the RN after DO order, titrated to patient comfort during the course of the procedure while the patient remained responsive to all verbal commands. In the prone position, following sterile prep and drape of the lumbar region, the posterior aspect of the right L1/2, L2/3, L3/4 facet joints were identified fluoroscopically. The skin was anesthetized via a 25-gauge 1.5-inch needle with 1% lidocaine solution into the corresponding facet joints. At this point, a 22- gauge 3.5-inch spinal needle was atraumatically introduced and advanced under fluoroscopic guidance into the corresponding facet joints. Following negative aspiration, injections of approximately 0.2-cc of Isovue 200 confirmed interarticular placement without vascular uptake. Radiological data, including multiple fluoroscopic views of the lumbosacral spine, reveal a spinal needle at the right L1/2, L2/3, L3/4 facet joints. Subsequent views show flow of contrast material both superiorly and inferiorly within the joint space without vascular or intrathecal uptake. At this point, a total of 0.5cc including a mixture of 0.25 cc Marcaine and 0.25cc betamethasone was injected without complication into each of the corresponding facet joints. The patient tolerated the procedure well without signs or symptoms of complications prior to transfer to the recovery area for further monitoring. The patient was then transferred to the recovery area where they were observed for an appropriate period of time after the injection. The patient reported a VAS score of 7 prior to the procedure and a post-procedure VAS of 0. POST OP INSTRUCTIONS The patient was provided a Pain Log to continue to record their response to the target-specific procedure prior to follow-up visit with their referring physician. Additionally, specific post-injection care instructions and a contact number to our office were provided if concerns arise regarding possible complications associated with the procedure are suspected.
== END 2021-05-15 15:45 | disposition home or self-care (01) ==
LOC: RAD 14:09
PROVIDERS: Family Provider Internal Medicine; PCP Internal Medicine; Referring Provider Physical Medicine & Rehabilitation; Visit Provider Physical Medicine & Rehabilitation
DX: M47.816 Spondylosis without myelopathy or radiculopathy, lumbar region (principal); M51.36 Other intervertebral disc degeneration, lumbar region
CPT/HCPCS: 64493; 64494; 64495; 99152; J0702; J2250; J3010

== ENCOUNTER 2021-08-13 09:03 | Day surgery (SDC) | payer MEDICARE, OTHER, SELFPAY ==
[2021-08-13] VITALS (8 sets, daily range): BP systolic 121–156; BP diastolic 60–79; PULSE 63–81; RESP 12–18; TEMP 36.2–36.9; O2SAT 98–100; BMI 17.9
[2021-08-13] MEDS: SODIUM CHLORIDE 0.9% 1,000 ML 84 ML IV (09:53)
--- NOTE | 2021-08-13 09:58 | PM.HP.1 ---
History of Present Illness History of Present Illness Date Patient Seen: 08/13/21 Chief complaint: DX COLONOSCOPY Patient History Medical History Arthralgia, sacroiliac Biceps tendinitis Degenerative joint disease of right hip Eczema (~2008) Facet arthritis, degenerative, L5-S1 level, lumbosacral spine Herniated nucleus pulposus, L2-3 right Herpes Medial collateral ligament sprain of knee Osteopenia (~2007) Pain in joint involving right pelvic region and thigh Trochanteric bursitis of both hips Surgical History Anesthesia History of hand surgery Family & Social History Family History Father Lung disease Mother History of heart disease Brother Pneumonia Social History: household members spouse Tobacco & Substance use: Smoking Status Never smoker alcohol intake current alcohol intake frequency other Substance Use Type does not use Meds Home Medications and Allergies Home Medications Medication Instructions Recorded Confirmed Type ascorbic acid (vitamin C) 500 mg/5 500 mg PO DAILY 02/14/18 08/13/21 History mL oral syrup beta carotene 25,000 unit capsule 25,000 unit PO DAILY 02/14/18 05/05/21 History calcium carb,cit 300 mg-magnesium tab PO tab 02/14/18 05/05/21 History cit,ox 150 mg-vit D3 400 unit tablet cyanocobalamin (vitamin B-12) 5,000 mcg SL DAILY 02/14/18 05/05/21 History 5,000 mcg/mL sublingual drops lysine 500 mg tablet 500 mg PO DAILY 02/14/18 08/13/21 History valacyclovir 1 gram tablet 500 mg PO BID PRN 05/05/21 08/13/21 History diazepam 10 mg tablet (Valium) 10 mg PO .COMPLEX PRN #10 tab 05/06/21 08/13/21 Rx gabapentin 300 mg capsule 300 mg PO TID #270 cap 05/06/21 08/13/21 Rx tramadol 50 mg tablet 50 mg PO TID PRN #60 tab 07/07/21 08/13/21 Rx Allergies Allergy/AdvReac Type Severity Reaction Status Date / Time celecoxib [From Celebrex] AdvReac Intermediate NAUSEA Verified 08/13/21 09:22 Exam Vital Signs (past 8 hours): - 08/13/21 09:31 Temperature 98.4 F Pulse Rate 81 Respiratory Rate 12 Blood Pressure 132/78 Pulse Oximetry 100 Oxygen Delivery Method Room Air Narrative Exam Narrative: Oropharynx free of lesions Chest clear to auscultation percussion Cardiac exam reveals no S3 or murmur Assessment & Plan Assessment & Plan narrative: History of colon polyps need for follow-up colonoscopy. Delayed made resulting in advancement of disease. Risks, benefits, alternatives have been explained. Further recommendations follow. Time Spent With Patient Critical Care time: I spent a total of [] minutes of critical care time on this patient's care today; this time is exclusive of procedural time.
--- NOTE | 2021-08-13 09:59 | PM.OP.COLON ---
Operative Date/Time/Diagnoses Date of procedure: 08/13/21 Pre-op diagnosis: See indication and findings Procedure & Clinicians Study performed: Colonoscopy Indications: History of colon Surgeon: Shmuel Johnson Procedure Notes Procedure in detail: After informed consent was obtained the patient was placed in left lateral decubitus position. The video colonoscope was introduced the rectum slowly advanced cecum. On slow withdrawal mucosa was carefully examined. This preparation was good. The scope was removed. The patient of the procedure well. Blood loss none Complications none Sedation mac Findings 1. Extensive pancolonic diverticulosis worse in the sigmoid. 2. Narrowed sigmoid as well with significant tortuosity. Somewhat difficult to pass the scope to the cecum. 3. Otherwise negative colonoscopy to cecum We do not have all the records from Constanza's previous colonoscopies. This colonoscopy was done 10 years after the last. With no findings I would suggest follow-up colonoscopy at the age 80/10 years.
--- NOTE | 2021-08-13 10:10 | SUR.PREOP ---
[id number] called re: covid test-pending still, reports 5 minutes til ready.
[2021-08-13 10:14] LABS: COVID19 -Nasal RAPID Negative (Negative)
--- NOTE | 2021-08-13 11:08 | SUR.PHASEII ---
Discharge instructions given to pt. Pt states she understands discharge instructions. pt to be discharged with her .
== END 2021-08-13 11:16 | disposition home or self-care (01) ==
PROVIDERS: Family Provider Internal Medicine; PCP Internal Medicine; Referring Provider Internal Medicine Gastroenterology; Visit Provider Internal Medicine Gastroenterology
PROC: 0DJD8ZZ Inspection of Lower Intestinal Tract, Via Natural or Artificial Opening Endoscopic (ICD-10-PCS; CPT 45378; principal; 2021-08-13 10:30)
DX: Z12.11 Encounter for screening for malignant neoplasm of colon (principal); Z86.010 Personal history of colon polyps; Z20.822 Contact with and (suspected) exposure to COVID-19; K57.30 Diverticulosis of large intestine without perforation or abscess without bleeding
CPT/HCPCS: G0105; 87635; J2704

== ENCOUNTER → 2021-12-30 15:45 | Outpatient (CLI) | payer MEDICARE, OTHER, SELFPAY ==
--- NOTE | 2021-12-30 15:45 | DI.US.S_ITS ---
PROCEDURE: US PELVIC COMPLETE INDICATIONS: Pelvic pain TECHNIQUE: Real-time scanning was performed of the pelvic organs, with image documentation. Additional endovaginal scanning was necessary due to incomplete visualization of the adnexal and endometrial structures by transabdominal scanning. COMPARISON: [facility], CT, ABDOMEN/PELVIS WITH CONTRAST, 04/28/2013, 17:35. [facility], US, PELVIC COMPLETE, 06/04/2014, 10:30. [facility], US, PELVIC COMPLETE, 02/08/2014, 12:35. FINDINGS: Uterus: Uterus is anteverted measuring 4.0 x 1.7 x 3.1 cm. The myometrium is heterogeneous. The endometrium measures 1 mm combined thickness. There is a 3.2 mm cyst in left side of ureters. Trace amount of endometrial fluid is present. A cluster of echogenic foci in cervix measuring 9 x 7 x 6 mm, unchanged from the last exam, compatible with nonspecific calcification. The appearance is unchanged since 02/08/2014 Ovaries: The right ovary measures 1.5 x 0.8 x 1.5 cm. The left ovary is not definitively seen. There is a 1.9 x 1.4 x 1.6 cm structure in the left adnexa. Other: No pathologic free abdominal or pelvic fluid. IMPRESSION: 1. Clustered echogenic foci in cervix appear unchanged since 06/04/2014, probably related to calcifications. 2. A 3.2 mm endometrial cyst. There is a trace amount of fluid in the endometrial cavity. Endometrium is 1 mm in combined thickness. 3. The left ovary is not definitive seen. There is a 1.9 x 1.4 x 1.6 cm structure in the left adnexa, uncertain clinical significance. We strive to produce accurate, complete, and clear reports of imaging services. To assist us in improving patient care, this report was composed using standard report templates and voice recognition software. Therefore, it may contain abnormal punctuation, insertions and/or omissions. Occasional wrong-word or sound-alike substitutions may occur. Though we review the report and make efforts to correct it, we do recommend that the report be read carefully in proper context to recognize any text inaccuracies. Dictated by: Shine Ellison M.D. on 01/01/2022 at 15:46 Approved by: Shine Ellison M.D. on 01/01/2022 at 15:59
== END ==
PROVIDERS: Family Provider Internal Medicine; PCP Internal Medicine; Referring Provider Obstetrics & Gynecology; Visit Provider Obstetrics & Gynecology
DX: R10.2 Pelvic and perineal pain (principal); N85.8 Other specified noninflammatory disorders of uterus
CPT/HCPCS: 76830; 76856

== ENCOUNTER → 2022-03-26 12:33 | Outpatient (CLI) | payer MEDICARE, OTHER, SELFPAY ==
--- NOTE | 2022-03-26 | DI.MG.S_ITS ---
BILATERAL DIGITAL SCREENING MAMMOGRAM 3D/2D WITH CAD: 03/26/2022 CLINICAL: Routine screening. Comparison is made to exams dated: 03/08/2021 mammogram, 02/07/2020 mammogram, 01/17/2020 mammogram, and 10/19/2018 mammogram - [facility]. Both breasts are extremely dense, which lowers the sensitivity of mammography (category d />75% glandular tissue). Current study was also evaluated with a Computer Aided Detection (CAD) system. There is a possible asymmetry in the right breast at 5 o'clock anterior depth. There is architectural distortion associated with the asymmetry. No other significant masses, calcifications, or other findings are seen in either breast. IMPRESSION: INCOMPLETE: NEEDS ADDITIONAL IMAGING EVALUATION The possible asymmetry in the right breast is indeterminate. Additional views with possible ultrasound are recommended. Based on the Tyrer Cuzick model (a risk assessment model) the patient's lifetime risk is 10.5% and her 10 year risk is 7.3%. According to the ACR, ACS, and NCCN guidelines, an annual breast MRI exam along with mammogram is recommended if the patient's lifetime risk is 20% or greater. This exam was interpreted at Station ID: [id number]. NOTE: For mammograms, a report in lay terms will be sent to the patient. Approximately 15% of breast malignancies will not be visualized mammographically. In the management of a palpable breast mass, a negative mammogram must not discourage biopsy of a clinically suspicious lesion. Electronically Signed By: Kendrick Stoner M.D., jr/terrie:03/26/2022 13:09:35 letter sent: Additional Imaging Needed ACR BI-RADS Category 0: Incomplete 3340F
== END ==
PROVIDERS: Family Provider Internal Medicine; PCP Internal Medicine; Referring Provider Internal Medicine; Visit Provider Internal Medicine
DX: Z12.31 Encounter for screening mammogram for malignant neoplasm of breast (principal); N64.89 Other specified disorders of breast
CPT/HCPCS: 77063; 77067

== ENCOUNTER → 2022-04-15 09:52 | Outpatient (CLI) | payer MEDICARE, OTHER, SELFPAY ==
--- NOTE | 2022-04-15 | DI.MG.S_ITS ---
UNILATERAL RIGHT DIGITAL DIAGNOSTIC MAMMOGRAM 3D/2D WITH ADDITIONAL VIEWS: 04/15/2022 CLINICAL: Additional evaluation requested from prior study. Comparison is made to exams dated: 03/26/2022 mammogram, 03/08/2021 mammogram, 02/07/2020 mammogram, and 01/17/2020 mammogram - [facility]. The right breast is extremely dense, which lowers the sensitivity of mammography (category d />75% glandular tissue). There is a possible asymmetry in the right breast at 5 o'clock anterior depth. This is not seen in additional views. No other significant masses or calcifications are seen in the breast. IMPRESSION: INCOMPLETE: NEEDS ADDITIONAL IMAGING EVALUATION The possible asymmetry in the right breast is not confirmed. A second look with ultrasound is recommended and will immediately follow. Based on the Tyrer Cuzick model (a risk assessment model) the patient's lifetime risk is 10.5% and her 10 year risk is 7.3%. According to the ACR, ACS, and NCCN guidelines, an annual breast MRI exam along with mammogram is recommended if the patient's lifetime risk is 20% or greater. This exam was interpreted at Station ID: [id number]. NOTE: For mammograms, a report in lay terms will be sent to the patient. Approximately 15% of breast malignancies will not be visualized mammographically. In the management of a palpable breast mass, a negative mammogram must not discourage biopsy of a clinically suspicious lesion. Electronically Signed By: Rohit Wong M.D. slc/:04/15/2022 10:14:51 ACR BI-RADS Category 0: Incomplete 3340F
--- NOTE | 2022-04-15 09:53 | DI.US.S_ITS ---
LIMITED ULTRASOUND OF RIGHT BREAST: 04/15/2022 CLINICAL: Patient returns today to evaluate a focal asymmetry in the right breast. Comparison is made to exams dated: 04/15/2022 mammogram, 03/26/2022 mammogram, 03/08/2021 mammogram, 01/17/2020 mammogram, 10/19/2018 mammogram, and 10/15/2017 mammogram - . Real-time ultrasound of the right breast 5 o'clock, and retroareolar regions was performed. Palacios scale images of the real-time examination were reviewed. No significant abnormalities were seen sonographically in the right breast in the region of possible architectural distortion. IMPRESSION: NEGATIVE There is no sonographic evidence of malignancy. A 1 year screening mammogram is recommended. Exam findings were conveyed to the patient. This exam was interpreted at Station ID: [id number]. Electronically Signed By: Rohit Wong M.D. slc/:04/15/2022 13:01:18 letter sent: Normal Exam Ultrasound BI-RADS: 1 Negative
== END ==
PROVIDERS: Family Provider Internal Medicine; PCP Internal Medicine; Referring Provider Internal Medicine; Visit Provider Internal Medicine
DX: R92.8 Other abnormal and inconclusive findings on diagnostic imaging of breast (principal)
CPT/HCPCS: 76642; 77065; G0279

== ENCOUNTER → 2022-06-05 10:26 | Outpatient (CLI) | payer MEDICARE, OTHER, SELFPAY ==
[2022-06-05 11:19] LABS: COVID19 -Nasal RAPID Negative (Negative)
== END ==
PROVIDERS: Family Provider Internal Medicine; PCP Internal Medicine; Visit Provider Obstetrics & Gynecology
DX: Z01.812 Encounter for preprocedural laboratory examination (principal); Z20.822 Contact with and (suspected) exposure to COVID-19
CPT/HCPCS: 87635; C9803

== ENCOUNTER → 2022-07-30 09:42 | Outpatient (CLI) | payer MEDICARE, OTHER, SELFPAY ==
[2022-07-30 10:30] LABS: Hematocrit 40.5 % (36-46); Hemoglobin 13.5 g/dL (12.0-16.0); Mean Corpuscular HGB Conc 33.4 % (30-36); Mean Corpuscular Hemoglobin 31.3 PG (26-34); Mean Corpuscular Volume 93.8 fL (80-100); Platelet Count 277 X10^3/uL (150-400); Red Blood Cell Count 4.31 X10^6/uL (4.0-5.2); Red Cell Distribution Width 13.7 % (11.6-14.8); White Blood Cell Count 7.4 X10^3/uL (4.5-11.0)
[2022-07-30 10:54] LABS: Alanine Aminotransferase 22 IU/L (<35); Albumin 4.5 g/dL (3.5-5.0); Albumin Globulin Ratio 1.3 (1.0-2.8); Alkaline Phosphatase 62 U/L (38-126); Aspartate Aminotransferase 34 IU/L (14-36); BUN Creatinine Ratio 20.5 (6-22); Bilirubin Total 0.8 mg/dL (0.2-1.3); Blood Urea Nitrogen 17 mg/dL (7-17); Calcium 9.7 mg/dL (8.4-10.2); Carbon Dioxide 29 mmol/L (22-32); Chloride 103 mmol/L (98-107); Cholesterol 233 mg/dL (140-199); Estimated Glomerular Filt Rate > 60 mL/min (>60); Globulin 3.4 g/dL (1.7-4.1); Glucose 98 mg/dL (80-110); HDL Cholesterol 71 mg/dL (40-60); HEMOLYSIS < 15 (0-50); LDL Cholesterol Calculated 128 mg/dL (<100); Sodium 141 mmol/L (137-145); Total Protein 7.9 g/dL (6.3-8.2); Triglycerides 168 mg/dL (35-150)
[2022-07-30 11:02] LABS: Vitamin D 25 Hydroxy (D3) 51.1 ng/mL (30.0-100.0)
[2022-07-30 11:15] LABS: TSH w/ Reflex to FT4 0.81 uIU/mL (0.47-4.68)
== END ==
PROVIDERS: Family Provider Internal Medicine; PCP Internal Medicine; Referring Provider Internal Medicine; Visit Provider Internal Medicine
DX: E78.2 Mixed hyperlipidemia (principal); E55.9 Vitamin D deficiency, unspecified; M81.0 Age-related osteoporosis without current pathological fracture
CPT/HCPCS: 36415; 80053; 80061; 82306; 84443; 85027

== ENCOUNTER 2022-08-20 06:19 | Day surgery (SDC) | payer MEDICARE, OTHER, SELFPAY ==
[2022-08-17 08:16] VITALS: BMI 17.9
[2022-08-20 07:29] VITALS: BP 162/81; PULSE 74; RESP 16; TEMP 36.5; O2SAT 98; BMI 18.0
[2022-08-20] MEDS: LACTATED RINGERS 1,000 ML 42 ML IV (07:38)
--- NOTE | 2022-08-20 07:44 | PM.HP.1 ---
History of Present Illness History of Present Illness Date Patient Seen: 08/20/22 Time Patient Seen: 07:44 Chief complaint: PELVIC Narrative: Patient is a 72-year-old 0 who presents for a diagnostic laparoscopy and a diagnostic hysteroscopy. These procedures are being done due to persistent right lower quadrant pain despite negative imaging. She also has an echogenic cervical mass. Patient History Medical History (Updated 07/30/22 @ 09:41 by Srikanth Jones MD) Biceps tendinitis Chronic low back pain Eczema (~2008) Eczematous dermatitis Facet arthritis, degenerative, L5-S1 level, lumbosacral spine Generalized anxiety disorder Herniated nucleus pulposus, L2-3 right Herpes Herpesviral infection, unspecified Medial collateral ligament sprain of knee Medicare annual wellness visit, initial Mixed hyperlipidemia Oral cancer (~02/2021) Osteopenia (~2007) Osteopenia Pain in joint involving right pelvic region and thigh Trochanteric bursitis of both hips Surgical History Anesthesia Fracture of maxillary tuberosity (~02/11/21) History of hand surgery Family & Social History Family History Father Lung disease Mother History of heart disease Brother Pneumonia Grandfather Cancer Grandmother Cancer Social History: household members spouse Tobacco & Substance use: Smoking Status Never smoker alcohol intake current alcohol intake frequency holiday/special occasion Substance Use Type does not use Meds Home Medications and Allergies Home Medications Medication Instructions Recorded Confirmed Type ascorbic acid (vitamin C) 500 mg/5 500 mg PO DAILY 02/14/18 08/20/22 History mL oral syrup beta carotene 7,500 mcg (25,000 25,000 unit PO DAILY 02/14/18 08/20/22 History unit) capsule cyanocobalamin (vitamin B-12) 5,000 mcg sublingual DAILY 02/14/18 08/20/22 History 5,000 mcg/mL sublingual drops lysine 500 mg tablet 500 mg PO DAILY 02/14/18 08/20/22 History gabapentin 300 mg capsule 300 mg PO TID #270 caps 11/10/21 08/20/22 Rx tramadol 50 mg tablet 50 mg PO BID PRN pain #42 tabs 06/15/22 08/20/22 Rx clobetasol 0.05 % topical cream 1 applic topical BID #30 grams 07/30/22 08/20/22 Rx lorazepam 0.5 mg tablet 0.5 mg PO DAILY PRN anxiety #30 07/30/22 08/20/22 Rx tabs valacyclovir 1 gram tablet 500 mg PO BID PRN Vaginal 07/30/22 08/20/22 Rx Irritation #30 tabs Allergies Allergy/AdvReac Type Severity Reaction Status Date / Time celecoxib [From Celebrex] Allergy Intermediate Rash Verified 08/20/22 07:21 Exam Vital Signs (past 8 hours): - 08/20/22 07:29 Temperature 97.7 F Pulse Rate 74 Respiratory Rate 16 Blood Pressure 162/81 H Pulse Oximetry 98 Oxygen Delivery Method Room Air Oxygen Delivery Method Room Air Narrative Exam Narrative: HEENT: No thyromegaly, no anterior cervical or supraclavicular lymphadenopathy. Lungs:Clear to auscultation bilaterally, no wheezes. Cardiovascular: Regular rate and rhythm, no murmurs, rubs, or gallops. Abdomen: No scars. No hepatosplenomegaly. No masses palpable. External genitalia: Atrophic Vagina: Atrophic Cervix: Nulliparous Bimanual exam: 5 Week size uterus. Mobile. No adnexal masses or tenderness Assessment & Plan Assessment & Plan narrative: Assessment: 72-year-old G0 with persistent right lower quadrant pain and an echogenic mass in the cervix Plan: Diagnostic laparoscopy and diagnostic hysteroscopy. The risks, benefits, and alternatives to the procedure were explained to the patient. The risks including bleeding, infection, injury to the bowel, bladder, ureters, or uterine perforation. She understands all of these risks and agrees to proceed. A full par Q was held and consent form was signed. Time Spent With Patient Time with patient: less than 30 minutes Critical Care time: I spent a total of [] minutes of critical care time on this patient's care today; this time is exclusive of procedural time.
--- NOTE | 2022-08-20 07:48 | PM.PREOP ---
Pre-operative Note COVID-19 Criteria for continued procedure: Non-surgical alternatives not available or appropriate per current SOC Interval Note History & Physical reviewed/Exam performed by Physician: Yes Changes to H&P: No H&P completed within 30 days and has changed as indicated here:: 08/20/22
--- NOTE | 2022-08-20 08:13 | SUR.OPER ---
Lithotomy on padded OR bed, head on pillow, arms tucked and padded. Legs secured in padded yellow fins stirrups. Pt positioned per direction and supervision of Dr Cramer.
[2022-08-20 08:16] VITALS: BP 89/46; PULSE 73; RESP 13; TEMP 36.6; O2SAT 97
[2022-08-20] MEDS: BUPIVACAINE 0.5% W/ EPI (PF) 30 ML VIAL INJ (08:35)
[2022-08-20 08:53] VITALS: BP 131/93; PULSE 88; RESP 16; TEMP 37.4; O2SAT 98
[2022-08-20 08:58] VITALS: BP 168/78; PULSE 85; RESP 14; O2SAT 98
[2022-08-20 09:04] VITALS: BP 151/99; PULSE 82; RESP 13; TEMP 37.2; O2SAT 99
--- NOTE | 2022-08-20 09:18 | PM.GYNOP.1 ---
Operative Date/Time/Diagnoses Date of procedure: 08/20/22 Time of procedure: 09:25 Pre-op diagnosis: Persistent right lower quadrant pain Cervical mass Post-op diagnosis: same Procedure & Clinicians Procedure: Procedures Operation Date: 08/20/22 07:45 Actual Procedure Side Surgeon p [facility] Laparoscopy & Not Applicable Lacy Cramer MD s DX Hysteroscopy Not Applicable Lacy Cramer MD Indications: Persistent right lower quadrant pain Cervical mass on ultrasound Surgeon: Lacy Cramer Anesthesia Type: General and Local Operative Notes Findings: 5 week size anteverted uterus Normal right tube and ovary Left tube and ovary not visualized due to bowel adhesions Thin, filmy adhesions in the right upper quadrant Thin, filmy adhesions around the appendix Normal liver Normal appendix Closure Type: primary Specimen(s): none Estimated blood loss (mL): 5 Blood products transfused: none Procedure in detail: After informed consent was obtained, the patient was taken to the operating room where she was placed in the dorsal supine position. After adequate general endotracheal anesthesia was achieved, she was placed in the dorsal lithotomy position, and prepped and draped in the usual sterile fashion. A time-out was performed. 6 cc of 0.5% Marcaine with epinephrine were injected in the umbilical fold. A 5 mm incision was made. The Veress needle was placed into the peritoneal cavity and its placement confirmed by aspiration and drop test. The abdominal cavity was insufflated with 3.1 L of CO2. The Veress needle was removed, and a 5 mm trocar was placed without difficulty. Initial inspection of the pelvis and abdomen revealed the findings noted above. The instruments were removed from the abdomen. The CO2 was allowed to escape. The incisions were repaired with 4-0 Monocryl in a subcuticular fashion. Steri-Strips and Allevyn dressings were placed. Attention was then turned to the abdomen where a pediatric Fields speculum was placed into the vagina. The cervix was grasped with a single-tooth tenaculum. The cervical os was sequentially dilated to the # 8 Hegar dilator. The hysteroscope passed easily into the endometrial cavity. The cavity was normal. On removing the hysteroscope the cervix was examined and there were no worrisome masses or polyps observed. The single-tooth tenaculum was removed from the anterior lip of the cervix. The speculum was removed from the vagina. Sponge, lap, and instrument counts were correct x2. The patient tolerated the procedure well, and was taken to PACU in stable condition. Complications: none Post-operative Condition: stable Disposition: PACU Plan for aftercare: Home after recovery
== END 2022-08-20 09:15 | disposition home or self-care (01) ==
PROVIDERS: Family Provider Internal Medicine; PCP Internal Medicine; Referring Provider Obstetrics & Gynecology; Visit Provider Obstetrics & Gynecology
PROC: (CPT 49320; principal; 2022-08-20 07:45)
PROC: 0UDB8ZZ Extraction of Endometrium, Via Natural or Artificial Opening Endoscopic (ICD-10-PCS; CPT 58558; 2022-08-20 07:45)
DX: R10.31 Right lower quadrant pain (principal); N73.6 Female pelvic peritoneal adhesions (postinfective); R93.89 Abnormal findings on diagnostic imaging of other specified body structures
CPT/HCPCS: 49320; 58555; J0330; J1100; J2250; J2405; J2704; J3010

== ENCOUNTER 2022-09-30 10:55 | Emergency (ER) | payer MEDICARE, OTHER, SELFPAY ==
[2022-09-30] VITALS (134 sets, daily range): BP systolic 66–140; BP diastolic 40–93; PULSE 106–173; RESP 10–63; TEMP 32–35.4; O2SAT 41–95; BMI 20.7
--- NOTE | 2022-09-30 | DI.RAD.S_ITS ---
PROCEDURE: XR CHEST 1V INDICATIONS: CHEST PAIN TECHNIQUE: One view of the chest was acquired. COMPARISON: [facility], CR, XR CHEST 2 VIEWS, 09/27/2022, 8:58. FINDINGS: Surgical changes and devices: None. Lungs and pleura: Resolution of right basilar infiltrate. Lungs are clear. No pleural effusions or pneumothorax. Mediastinum: Mediastinal contours appear normal. Mild cardiomegaly. Bones and chest wall: No suspicious bony lesions. Overlying soft tissues appear unremarkable. IMPRESSION: 1. Interval resolution of right basilar infiltrate. 2. Mild cardiomegaly. Dictated by: Mathew Hurst M.D. on 09/30/2022 at 11:13 Approved by: Mathew Hurst M.D. on 09/30/2022 at 11:14
[2022-09-30] MEDS: SODIUM CHLORIDE 0.9% 1,000 ML 1000 ML IV (11:05)
--- NOTE | 2022-09-30 11:11 | ED.SOB ---
HPI - SOB/Dyspnea General Chief Complaint: Shortness of Breath/Dyspnea Stated Complaint: pneouminia Time Seen by Provider: 09/30/22 11:09 Source: patient and old records reviewed Mode of arrival: Wheelchair Limitations: no limitations History of Present Illness HPI Narrative: This is a 72-year-old female with no reported past medical history, no daily medications no prior surgeries who presents with increasing shortness of breath starting since Wednesday. Patient's notes she felt short of breath while she was walking had some cramping in her legs. She states then since she is had progressive shortness of breath. She has not had fevers. She denies chest pain or pressure. She is had abdominal cramping and she is had some nausea and vomiting starting last 2 days. She states she was seen at urgent care on Wednesday given a prescription for Augmentin has been taking that and developed the vomiting and cramping afterwards. She has not had swelling of her lips or airways. She has not had a new rash. Patient has not had any syncope. She does not feel that her heart rate is fast but she is tachycardic. She has had a cough. Patient denies daily medications. She denies prior surgeries. Allergies include Augmentin and Celebrex. She denies tobacco, occasional alcohol, no illicit. Related Data Home Medications Medication Instructions Recorded Confirmed ascorbic acid (vitamin C) 500 mg/5 500 mg PO DAILY 02/14/18 09/30/22 mL oral syrup beta carotene 7,500 mcg (25,000 25,000 unit PO DAILY 02/14/18 09/30/22 unit) capsule cyanocobalamin (vitamin B-12) 5,000 mcg sublingual DAILY 02/14/18 09/30/22 5,000 mcg/mL sublingual drops lysine 500 mg tablet 500 mg PO DAILY 02/14/18 09/30/22 amoxicillin 875 mg-potassium 1 tab PO BID 09/30/22 09/30/22 clavulanate 125 mg tablet gabapentin 300 mg capsule 300 mg PO TID PRN Pain (Scale 09/30/22 09/30/22 Score 1-3) Previous Rx's Medication Instructions Recorded clobetasol 0.05 % topical cream 1 applic topical BID #30 grams 07/30/22 valacyclovir 1 gram tablet 500 mg PO BID PRN Vaginal 01/26/23 Irritation #30 tabs tramadol 50 mg tablet 50 mg PO BID PRN pain #42 tabs 09/08/22 Allergies Allergy/AdvReac Type Severity Reaction Status Date / Time amoxicillin [From Augmentin] Allergy Severe vomiting Verified 09/30/22 10:22 clavulanic acid Allergy Severe vomiting Verified 09/30/22 10:22 [From Augmentin] celecoxib [From Celebrex] Allergy Intermediate Rash Verified 09/30/22 10:22 Review of Systems Review of Systems ROS Unobtainable: All systems reviewed & are unremarkable except as noted in HPI and below Patient History Medical History Acute respiratory failure with hypoxia Biceps tendinitis Chronic low back pain Eczema (~2008) Eczematous dermatitis Facet arthritis, degenerative, L5-S1 level, lumbosacral spine Generalized anxiety disorder Herniated nucleus pulposus, L2-3 right Herpes Herpesviral infection, unspecified Medial collateral ligament sprain of knee Medicare annual wellness visit, initial Mixed hyperlipidemia Nausea & vomiting Oral cancer (~02/2021) Osteopenia (~2007) Osteopenia Pain in joint involving right pelvic region and thigh Pleural effusion, right RLL pneumonia Sepsis Trochanteric bursitis of both hips Surgical History Anesthesia Fracture of maxillary tuberosity (~02/11/21) History of hand surgery Family History Father Lung disease Mother History of heart disease Brother Pneumonia Grandfather Cancer Grandmother Cancer Social History household members: spouse Smoking Status: Never smoker alcohol intake: current Smoking Status: Never smoker alcohol intake frequency: holidays/special occasions only Substance Use Type: does not use Exam Narrative Exam Narrative: GEN: Thin female, alert and oriented x 3, patient appears to be in severe distress. Patient appears pale. HEENT: Atraumatic, pupils are equal round reactive to light, extraocular movements are intact, nares are clear, TMs are clear with no fluid, there is no conjunctival pallor. Throat is clear without any exudates, erythema, tonsillar enlargement or uvular deviation, no swelling oropharynx. HEART: Irregularly irregular and tachycardic rate and rhythm without murmur, clicks, rubs. Decreased cap refill upper and lower extremities. LUNGS:Lungs clear to auscultation, no wheezes, rales, crackles, chest moves symmetrically, positive for tachypnea. Positive for ScM accessory muscle use. Patient can speak in 4-5 word sentences. ABD:bowel sounds normal, soft, non-tender, no guarding, rebound, rigidity, no masses noted, no hepatosplenomegaly, nondistended nontender :No CVA tenderness MSCL: Non-tender, no muscle atrophy, muscles strength 5/5 upper and lower extremities, full range of motion NEURO:CN 2-12 intact, sensation normal SKIN: No rash, erythema, patient has significantly decreased cap refill and has mottling of her thighs and knees. Initial Vital Signs Initial Vital Signs: Vital Signs Temperature 95.7 F L 09/30/22 10:55 Pulse Rate 172 H 09/30/22 10:55 Respiratory Rate 50 H 09/30/22 10:55 Pulse Oximetry 80 L 09/30/22 10:55 Oxygen Delivery Method Room Air 09/30/22 10:55 Procedures Central Line Placement Right IJ: Patient Placed on Monitor/Pulse Ox: Yes MD Prep: mask, gown and gloves Central Line Prep: Povidone-Iodine 1%, Chlorhexidine scrub and sterile drapes applied Local Anesthetic: lidocaine 1% Amount of anesthesia used (mL): 5 Central Line Lumen Inserted: triple Post Procedure: sutured in place, good blood return, all ports aspirated, flushed, capped, sterile dressing applied and line stabilization device Post Procedure X-Ray: tip of catheter in good position and no pneumothorax seen Patient Tolerated Procedure: Well and No complications Complications: none Intubation Time out performed: Yes sedative: Ketamine Mg Given: 150 paralytic: Succinylcholine Mg Given: 150 Laryngoscope: other (glidoscope) Assist Device Used: fiber optic device ET Tube Size: 7 ET Tube Uncuffed: No Tube Secured Depth (cm): 22 Tube Secured Location: teeth Tube Placement Confirmation: Visualized tube passing through cords, Equal breath sounds bilaterally, No breath sounds over epigastrium, Confirmation by capnometry and Chest Xray Patient Tolerated Procedure: Well and No complications Additional Comments: Patient was hypotensive before was given posterior pressure but still low so started on epi drip. Patient was intubated for airway control there was concern when she flies she will have to be flat and while tolerating at this time might not be able to for prolonged transport. Course Orders Ordered: ED Orders 09/30/22 11:09 EKG-12 Lead Stat 09/30/22 11:10 Complete Blood Count AUTO DIFF Stat Comprehensive Metabolic Panel Stat Digoxin Stat Lactate (Lactic Acid) Stat Lipase Stat NT-proBNP (BNP-Adult 18+) Stat Procalcitonin Stat Respiratory Panel (Film Array) Stat Troponin & CK Cardiac Panel Stat 09/30/22 11:40 ABG [Arterial Blood Gas] Stat 09/30/22 12:02 US abdomen complete Stat 09/30/22 12:20 Urinalysis and Microscopic Stat Urine Culture Stat 09/30/22 13:39 XR chest 1V Stat 09/30/22 13:55 Blood Culture Stat CBC Auto Diff [Complete Blood Count AUTO DIFF] Stat Comprehensive Metabolic Panel Stat Magnesium Stat PTT Partial Thromboplastin Oliver Stat Prothrombin Time INR Stat Troponin I Stat 09/30/22 14:53 XR chest 1V Stat Discontinued Medications Sodium Chloride 9 ml/ (Epinephrine HCl 0.1 mg) 0 ml IV NOW ONE Stop: 09/30/22 12:26 Last Admin: 09/30/22 12:27 Dose: 1 ml Documented By: ALISA Sodium Chloride 9 ml/ (Epinephrine HCl 0.1 mg) 0 ml IV NOW ONE Stop: 09/30/22 14:32 Last Admin: 09/30/22 14:33 Dose: 1 ml Documented By: ALISA Dexamethasone (Dexamethasone 10 Mg/Ml Vial) 6 mg IV DAILY [facility] Stop: 10/09/22 13:29 Last Admin: 09/30/22 13:58 Dose: 6 mg Documented By: BENNY Diltiazem HCl (Diltiazem 5 Mg/Ml Sdv) 10 mg IV NOW ONE Stop: 09/30/22 11:13 Last Admin: 09/30/22 11:19 Dose: 10 mg Documented By: ALISA Diltiazem HCl (Diltiazem 5 Mg/Ml Sdv) 10 mg IV NOW ONE Stop: 09/30/22 11:32 Last Admin: 09/30/22 11:24 Dose: 10 mg Documented By: ALISA Fentanyl (Fentanyl 100 Mcg/2 Ml Inj) 50 mcg IV Q15MIN [facility] Last Admin: 09/30/22 14:57 Dose: 50 mcg Documented By: BENNY Sodium Chloride (Normal Saline 0.9%) 1,000 mls @ 1,000 mls/hr IV BOLUS PRN PRN Reason: Fluid replacement Last Infusion: 09/30/22 12:12 Dose: 0 mls/hr Documented By: Admin: 09/30/22 11:05 Dose: 1,000 mls/hr Documented By: ALISA DILTIAZEM (Diltiazem 125 Mg/125 Ml-D5w) 125 mg in 125 mls @ 5 mls/hr IV TITRATE MAYNOR; Protocol Last Titration: 09/30/22 14:02 Dose: 0 mg/hr, 0 mls/hr Documented By: Titration: 09/30/22 12:26 Dose: 0 mg/hr, 0 mls/hr Documented By: Titration: 09/30/22 12:03 Dose: 15 mg/hr, 15 mls/hr Documented By: Titration: 09/30/22 11:38 Dose: 10 mg/hr, 10 mls/hr Documented By: Admin: 09/30/22 11:31 Dose: 5 mg/hr, 5 mls/hr Documented By: BENNY Vancomycin HCl (Vancomycin) 1,000 mg in 200 mls @ 200 mls/hr IV NOW ONE Stop: 09/30/22 12:27 Last Infusion: 09/30/22 13:15 Dose: 0 mls/hr Documented By: Admin: 09/30/22 11:59 Dose: 200 mls/hr Documented By: ALISA Sodium Chloride (Normal Saline 0.9%) 1,596.18 mls @ 532.06 mls/hr 30 ml/kg infuse over 3 hr (1596.18 ml) IV NOW ONE Stop: 09/30/22 14:28 Last Infusion: 09/30/22 13:09 Dose: 0 mls/hr Documented By: Infusion: 09/30/22 13:08 Dose: 0 mls/hr Documented By: Admin: 09/30/22 12:02 Dose: 532.06 mls/hr Documented By: BENNY Levofloxacin (Levaquin) 750 mg in 150 mls @ 100 mls/hr IV NOW ONE Stop: 09/30/22 13:29 Last Infusion: 09/30/22 14:11 Dose: 100 mls/hr Documented By: Admin: 09/30/22 13:10 Dose: 100 mls/hr Documented By: BENNY Metronidazole (Flagyl) 500 mg in 100 mls @ 100 mls/hr IV NOW ONE Stop: 09/30/22 12:59 NOREPINEPHRINE BITARTRATE/D5W (Levophed) 4 mg in 250 mls @ 30 mls/hr IV TITRATE MAYNOR; Protocol Last Titration: 09/30/22 14:32 Dose: 26.51 mcg/min, 99.4 mls/hr Documented By: Titration: 09/30/22 14:15 Dose: 14 mcg/min, 52.5 mls/hr Documented By: Titration: 09/30/22 14:11 Dose: 8 mcg/min, 30 mls/hr Documented By: Admin: 09/30/22 13:22 Dose: 8 mcg/min, 30 mls/hr Documented By: BENNY NOREPINEPHRINE BITARTRATE/D5W (Levophed) 4 mg in 250 mls @ 30 mls/hr IV TITRATE MAYNOR; Protocol Last Admin: 09/30/22 13:23 Dose: Not Given Documented By: BENNY Sodium Chloride (Normal Saline 0.9%) 1,000 mls @ 150 mls/hr IV BOLUS ONE Stop: 09/30/22 19:48 Last Infusion: 09/30/22 14:13 Dose: 150 mls/hr Documented By: Admin: 09/30/22 13:32 Dose: 150 mls/hr Documented By: BENNY Amiodarone HCl/Dextrose (Nexterone) 150 mg in 100 mls @ 600 mls/hr IV NOW ONE; Protocol Stop: 09/30/22 13:36 Last Infusion: 09/30/22 14:39 Dose: 0 mls/hr Documented By: Infusion: 09/30/22 14:12 Dose: 600 mls/hr Documented By: Admin: 09/30/22 14:06 Dose: 600 mls/hr Documented By: BENNY Amiodarone HCl/Dextrose (Nexterone) 360 mg in 200 mls @ 33.333 mls/hr IV NOW ONE; Protocol Stop: 09/30/22 19:26 Sodium Bicarbonate 100 meq/ (Dextrose) 1,100 mls @ 150 mls/hr IV CONT [facility]NOR Epinephrine HCl 8 mg/ Dextrose 250 mls @ 1.875 mls/hr IV TITRATE MAYNOR; Protocol Last Titration: 09/30/22 14:53 Dose: 26.51 mcg/min, 49.7 mls/hr Documented By: Admin: 09/30/22 14:42 Dose: 53.01 mcg/min, 99.4 mls/hr Documented By: ALISA Ketamine HCl (Ketamine 500 Mg/5 Ml Inj) 150 mg IV NOW ONE Stop: 09/30/22 14:35 Last Admin: 09/30/22 14:50 Dose: 150 mg Documented By: ALISA Midazolam HCl (Midazolam 2 Mg/2 Ml Vial) 2 mg IV NOW ONE Stop: 09/30/22 15:01 Sodium Bicarbonate (Sodium Bicarb 8.4% Syringe) 50 meq IV NOW ONE Stop: 09/30/22 13:48 Last Admin: 09/30/22 14:50 Dose: Not Given Documented By: ALISA Succinylcholine Chloride (Succinylcholine 200 Mg/10 Ml Vial) 150 mg IV NOW ONE Stop: 09/30/22 14:36 Last Admin: 09/30/22 14:51 Dose: 150 mg Documented By: ALISA Vital Signs Vital signs: Vital Signs - 8 hr 09/30/22 11:20 09/30/22 10:55 09/30/22 11:31 Temperature 95.7 F L Pulse Rate 172 H 172 H Respiratory Rate 50 H 42 H Blood Pressure Pulse Oximetry 80 L Oxygen Delivery Method Room Air Oxygen Flow Rate Fraction of Inspired Oxygen 60 09/30/22 11:01 09/30/22 11:02 09/30/22 11:04 Temperature Pulse Rate 172 H 170 H 171 H Respiratory Rate 33 H 35 H 36 H Blood Pressure Pulse Oximetry 88 L 85 L 82 L Oxygen Delivery Method Oxygen Flow Rate Fraction of Inspired Oxygen 09/30/22 11:06 09/30/22 11:08 09/30/22 11:10 Temperature Pulse Rate 172 H 170 H 171 H Respiratory Rate 43 H 38 H 36 H Blood Pressure Pulse Oximetry 91 Oxygen Delivery Method Oxygen Flow Rate Fraction of Inspired Oxygen 09/30/22 11:12 09/30/22 11:14 09/30/22 11:16 Temperature Pulse Rate 166 H 164 H 170 H Respiratory Rate 33 H 35 H 35 H Blood Pressure Pulse Oximetry 93 Oxygen Delivery Method Oxygen Flow Rate Fraction of Inspired Oxygen 09/30/22 11:18 09/30/22 11:20 09/30/22 11:22 Temperature Pulse Rate 170 H 173 H 151 H Respiratory Rate 32 H 33 H 36 H Blood Pressure Pulse Oximetry 91 95 Oxygen Delivery Method Oxygen Flow Rate Fraction of Inspired Oxygen 09/30/22 11:24 09/30/22 11:26 09/30/22 11:28 Temperature Pulse Rate 163 H 142 H Respiratory Rate 39 H 40 H Blood Pressure 133/82 Pulse Oximetry 94 88 L Oxygen Delivery Method Oxygen Flow Rate Fraction of Inspired Oxygen 09/30/22 11:28 09/30/22 11:30 09/30/22 11:32 Temperature Pulse Rate 129 H 140 H 129 H Respiratory Rate 42 H 41 H 34 H Blood Pressure Pulse Oximetry 90 L 90 L 82 L Oxygen Delivery Method Oxygen Flow Rate Fraction of Inspired Oxygen 09/30/22 11:34 09/30/22 11:36 09/30/22 11:38 Temperature Pulse Rate 143 H 140 H 148 H Respiratory Rate 31 H 34 H 25 H Blood Pressure Pulse Oximetry 86 L 85 L 82 L Oxygen Delivery Method Oxygen Flow Rate Fraction of Inspired Oxygen 09/30/22 11:40 09/30/22 11:42 09/30/22 11:44 Temperature Pulse Rate 150 H 147 H 157 H Respiratory Rate 29 H 36 H 34 H Blood Pressure Pulse Oximetry 82 L 87 L 83 L Oxygen Delivery Method Oxygen Flow Rate Fraction of Inspired Oxygen 09/30/22 11:46 09/30/22 11:48 09/30/22 11:50 Temperature Pulse Rate 145 H 142 H 158 H Respiratory Rate 33 H 34 H 34 H Blood Pressure Pulse Oximetry 82 L 81 L Oxygen Delivery Method Oxygen Flow Rate Fraction of Inspired Oxygen 09/30/22 11:52 09/30/22 11:54 09/30/22 11:56 Temperature Pulse Rate 162 H 153 H Respiratory Rate 38 H 43 H Blood Pressure 116/58 L Pulse Oximetry 77 L 86 L Oxygen Delivery Method Oxygen Flow Rate Fraction of Inspired Oxygen 09/30/22 11:56 09/30/22 11:58 09/30/22 12:00 Temperature Pulse Rate 156 H 151 H 153 H Respiratory Rate 32 H 33 H 32 H Blood Pressure Pulse Oximetry 81 L 82 L 81 L Oxygen Delivery Method High Flow Nasal Cannula Oxygen Flow Rate Fraction of Inspired Oxygen 09/30/22 12:01 09/30/22 12:01 09/30/22 12:02 Temperature Pulse Rate 154 H 153 H Respiratory Rate 31 H 33 H Blood Pressure 133/79 Pulse Oximetry 83 L 83 L Oxygen Delivery Method Oxygen Flow Rate Fraction of Inspired Oxygen 09/30/22 12:04 09/30/22 12:06 09/30/22 12:08 Temperature Pulse Rate 153 H 154 H 149 H Respiratory Rate 35 H 36 H 36 H Blood Pressure Pulse Oximetry 89 L 78 L Oxygen Delivery Method Oxygen Flow Rate Fraction of Inspired Oxygen 09/30/22 12:10 09/30/22 12:12 09/30/22 12:14 Temperature Pulse Rate 154 H 153 H 144 H Respiratory Rate 28 H 35 H 35 H Blood Pressure Pulse Oximetry 79 L 69 L 80 L Oxygen Delivery Method Oxygen Flow Rate Fraction of Inspired Oxygen 09/30/22 12:15 09/30/22 12:15 09/30/22 12:16 Temperature Pulse Rate 143 H 143 H Respiratory Rate 29 H 35 H Blood Pressure 85/63 L Pulse Oximetry 61 L 70 L Oxygen Delivery Method Oxygen Flow Rate Fraction of Inspired Oxygen 09/30/22 12:18 09/30/22 12:20 09/30/22 12:20 Temperature Pulse Rate 141 H 148 H Respiratory Rate 31 H 51 H Blood Pressure 67/44 L Pulse Oximetry 60 L 79 L Oxygen Delivery Method Oxygen Flow Rate Fraction of Inspired Oxygen 09/30/22 12:22 09/30/22 12:24 09/30/22 12:25 Temperature 94.5 F L 94.3 F L Pulse Rate 136 H 136 H 142 H Respiratory Rate 55 H 46 H 52 H Blood Pressure Pulse Oximetry 56 L 41 L 52 L Oxygen Delivery Method Oxygen Flow Rate Fraction of Inspired Oxygen 09/30/22 12:25 09/30/22 12:26 09/30/22 12:28 Temperature 94.3 F L 94.6 F L Pulse Rate 150 H 149 H Respiratory Rate 63 H 45 H Blood Pressure 126/61 Pulse Oximetry Oxygen Delivery Method Oxygen Flow Rate Fraction of Inspired Oxygen 09/30/22 12:29 09/30/22 12:29 09/30/22 12:30 Temperature 94.6 F L 94.1 F L Pulse Rate 151 H 164 H Respiratory Rate 42 H 50 H Blood Pressure 98/61 Pulse Oximetry 70 L Oxygen Delivery Method Oxygen Flow Rate Fraction of Inspired Oxygen 09/30/22 12:32 09/30/22 12:32 09/30/22 12:34 Temperature 94.5 F L 94.6 F L Pulse Rate 143 H 143 H Respiratory Rate 45 H 38 H Blood Pressure 107/78 Pulse Oximetry 75 L 59 L Oxygen Delivery Method Oxygen Flow Rate Fraction of Inspired Oxygen 09/30/22 12:36 09/30/22 12:38 09/30/22 12:40 Temperature 94.5 F L 94.6 F L Pulse Rate 147 H 144 H Respiratory Rate 49 H 50 H Blood Pressure 101/63 Pulse Oximetry Oxygen Delivery Method Oxygen Flow Rate Fraction of Inspired Oxygen 09/30/22 12:40 09/30/22 12:42 09/30/22 12:44 Temperature 94.8 F L 95.0 F L 95.0 F L Pulse Rate 147 H 145 H 144 H Respiratory Rate 43 H 40 H 37 H Blood Pressure Pulse Oximetry Oxygen Delivery Method Oxygen Flow Rate Fraction of Inspired Oxygen 09/30/22 12:45 09/30/22 12:45 09/30/22 12:46 Temperature 95.0 F L 94.8 F L Pulse Rate 142 H 142 H Respiratory Rate 41 H 40 H Blood Pressure 94/65 Pulse Oximetry Oxygen Delivery Method Oxygen Flow Rate Fraction of Inspired Oxygen 09/30/22 12:48 09/30/22 12:50 09/30/22 12:50 Temperature 94.8 F L 95.0 F L Pulse Rate 145 H 141 H Respiratory Rate 43 H 42 H Blood Pressure 100/68 Pulse Oximetry Oxygen Delivery Method Oxygen Flow Rate Fraction of Inspired Oxygen 09/30/22 12:52 09/30/22 13:01 09/30/22 12:54 Temperature 95.0 F L 95.0 F L Pulse Rate 146 H 145 H 145 H Respiratory Rate 45 H 40 H 37 H Blood Pressure Pulse Oximetry Oxygen Delivery Method Oxygen Flow Rate Fraction of Inspired Oxygen 09/30/22 12:55 09/30/22 12:55 09/30/22 12:56 Temperature 95.0 F L 95.2 F L Pulse Rate 152 H 143 H Respiratory Rate 35 H 35 H Blood Pressure 100/65 Pulse Oximetry Oxygen Delivery Method Oxygen Flow Rate Fraction of Inspired Oxygen 09/30/22 12:58 09/30/22 12:59 09/30/22 12:59 Temperature 95.2 F L 95.2 F L Pulse Rate 149 H 146 H Respiratory Rate 42 H 41 H Blood Pressure 102/60 Pulse Oximetry Oxygen Delivery Method Oxygen Flow Rate Fraction of Inspired Oxygen 09/30/22 13:00 09/30/22 13:01 09/30/22 13:01 Temperature 95.2 F L 95.0 F L Pulse Rate 150 H 134 H Respiratory Rate 36 H 33 H Blood Pressure 106/83 Pulse Oximetry Oxygen Delivery Method Oxygen Flow Rate Fraction of Inspired Oxygen 09/30/22 13:02 09/30/22 13:04 09/30/22 13:05 Temperature 95.0 F L 95.0 F L 95.0 F L Pulse Rate 146 H 151 H 150 H Respiratory Rate 40 H 43 H 41 H Blood Pressure Pulse Oximetry 51 L Oxygen Delivery Method Oxygen Flow Rate Fraction of Inspired Oxygen 09/30/22 13:05 09/30/22 13:06 09/30/22 13:08 Temperature 95.0 F L 95.0 F L Pulse Rate 151 H 150 H Respiratory Rate 47 H 40 H Blood Pressure 102/69 Pulse Oximetry Oxygen Delivery Method Oxygen Flow Rate Fraction of Inspired Oxygen 09/30/22 13:10 09/30/22 13:10 09/30/22 13:12 Temperature 95.0 F L 95.0 F L Pulse Rate 147 H 150 H Respiratory Rate 39 H 37 H Blood Pressure 90/70 Pulse Oximetry 88 L Oxygen Delivery Method Oxygen Flow Rate 50 Fraction of Inspired Oxygen 09/30/22 13:14 09/30/22 13:15 09/30/22 13:15 Temperature 95.0 F L 95.0 F L Pulse Rate 149 H 148 H Respiratory Rate 35 H 35 H Blood Pressure 90/61 Pulse Oximetry Oxygen Delivery Method Oxygen Flow Rate Fraction of Inspired Oxygen 09/30/22 13:16 09/30/22 13:17 09/30/22 13:17 Temperature 95.0 F L 95.0 F L Pulse Rate 136 H 143 H Respiratory Rate 32 H 35 H Blood Pressure 87/40 L Pulse Oximetry Oxygen Delivery Method Oxygen Flow Rate Fraction of Inspired Oxygen 09/30/22 13:18 09/30/22 13:19 09/30/22 13:19 Temperature 95.0 F L 95.0 F L Pulse Rate 150 H 151 H Respiratory Rate 31 H 37 H Blood Pressure 87/64 L Pulse Oximetry Oxygen Delivery Method Oxygen Flow Rate Fraction of Inspired Oxygen 09/30/22 13:20 09/30/22 13:20 09/30/22 13:22 Temperature 95.0 F L 95.2 F L Pulse Rate 148 H 148 H Respiratory Rate 41 H 39 H Blood Pressure 86/63 L Pulse Oximetry Oxygen Delivery Method Oxygen Flow Rate Fraction of Inspired Oxygen 09/30/22 13:24 09/30/22 13:26 09/30/22 13:26 Temperature 95.2 F L 95.2 F L Pulse Rate 152 H 147 H Respiratory Rate 30 H 49 H Blood Pressure 100/50 L Pulse Oximetry Oxygen Delivery Method Oxygen Flow Rate Fraction of Inspired Oxygen 09/30/22 13:28 09/30/22 13:30 09/30/22 13:31 Temperature 95.0 F L 95.2 F L 95.2 F L Pulse Rate 151 H 153 H 151 H Respiratory Rate 43 H 36 H 27 H Blood Pressure Pulse Oximetry Oxygen Delivery Method Oxygen Flow Rate Fraction of Inspired Oxygen 09/30/22 13:31 09/30/22 13:32 09/30/22 13:34 Temperature 95.2 F L 95.2 F L Pulse Rate 145 H 150 H Respiratory Rate 27 H 44 H Blood Pressure 113/69 Pulse Oximetry Oxygen Delivery Method Oxygen Flow Rate Fraction of Inspired Oxygen 09/30/22 13:35 09/30/22 13:35 09/30/22 13:36 Temperature 95.2 F L 95.2 F L Pulse Rate 155 H 155 H Respiratory Rate 37 H 36 H Blood Pressure 108/61 Pulse Oximetry 75 L 66 L Oxygen Delivery Method Oxygen Flow Rate Fraction of Inspired Oxygen 09/30/22 13:38 09/30/22 13:40 09/30/22 13:40 Temperature 95.2 F L 95.2 F L Pulse Rate 151 H 156 H Respiratory Rate 32 H 37 H Blood Pressure 120/70 Pulse Oximetry 69 L 70 L Oxygen Delivery Method Oxygen Flow Rate Fraction of Inspired Oxygen 09/30/22 13:42 09/30/22 13:44 09/30/22 13:46 Temperature 95.2 F L 95.2 F L 95.2 F L Pulse Rate 151 H 157 H 154 H Respiratory Rate 37 H 38 H 39 H Blood Pressure Pulse Oximetry 73 L 62 L 68 L Oxygen Delivery Method Oxygen Flow Rate Fraction of Inspired Oxygen 09/30/22 13:48 09/30/22 13:50 09/30/22 13:54 Temperature Pulse Rate 154 H 159 H 148 H Respiratory Rate 31 H 48 H 41 H Blood Pressure Pulse Oximetry 83 L Oxygen Delivery Method Oxygen Flow Rate Fraction of Inspired Oxygen 09/30/22 13:55 09/30/22 13:55 09/30/22 13:56 Temperature Pulse Rate 156 H 157 H Respiratory Rate 42 H 42 H Blood Pressure 109/68 Pulse Oximetry Oxygen Delivery Method Oxygen Flow Rate Fraction of Inspired Oxygen 09/30/22 13:58 09/30/22 14:00 09/30/22 14:01 Temperature Pulse Rate 153 H 160 H Respiratory Rate 38 H 42 H Blood Pressure 129/82 Pulse Oximetry 89 L Oxygen Delivery Method High Flow Nasal Cannula Oxygen Flow Rate Fraction of Inspired Oxygen 09/30/22 14:01 09/30/22 14:02 09/30/22 14:04 Temperature Pulse Rate 158 H 156 H 156 H Respiratory Rate 38 H 44 H 43 H Blood Pressure Pulse Oximetry Oxygen Delivery Method Oxygen Flow Rate Fraction of Inspired Oxygen 09/30/22 14:06 09/30/22 14:06 09/30/22 14:08 Temperature Pulse Rate 163 H 148 H Respiratory Rate 38 H 39 H Blood Pressure 120/82 Pulse Oximetry 80 L Oxygen Delivery Method Oxygen Flow Rate Fraction of Inspired Oxygen 09/30/22 14:10 09/30/22 14:10 09/30/22 14:12 Temperature Pulse Rate 145 H 141 H Respiratory Rate 33 H 37 H Blood Pressure 103/75 Pulse Oximetry Oxygen Delivery Method Oxygen Flow Rate Fraction of Inspired Oxygen 09/30/22 14:14 09/30/22 14:15 09/30/22 14:15 Temperature Pulse Rate 145 H 161 H Respiratory Rate 35 H 37 H Blood Pressure 78/62 L Pulse Oximetry Oxygen Delivery Method Oxygen Flow Rate Fraction of Inspired Oxygen 09/30/22 14:16 09/30/22 14:18 09/30/22 14:20 Temperature Pulse Rate 150 H 148 H 146 H Respiratory Rate 38 H 38 H 42 H Blood Pressure Pulse Oximetry Oxygen Delivery Method Oxygen Flow Rate Fraction of Inspired Oxygen 09/30/22 14:22 09/30/22 14:48 09/30/22 14:51 Temperature Pulse Rate 127 H 115 H 124 H Respiratory Rate 49 H 42 H Blood Pressure 140/92 H 124/93 H Pulse Oximetry Oxygen Delivery Method Oxygen Flow Rate Fraction of Inspired Oxygen 09/30/22 14:24 09/30/22 14:26 09/30/22 14:28 Temperature Pulse Rate 115 H 114 H 116 H Respiratory Rate 45 H 34 H 35 H Blood Pressure Pulse Oximetry Oxygen Delivery Method Oxygen Flow Rate Fraction of Inspired Oxygen 09/30/22 14:29 09/30/22 14:29 09/30/22 14:30 Temperature Pulse Rate 112 H 115 H Respiratory Rate 33 H 32 H Blood Pressure 66/47 L Pulse Oximetry Oxygen Delivery Method Oxygen Flow Rate Fraction of Inspired Oxygen 09/30/22 14:32 09/30/22 14:34 09/30/22 14:36 Temperature Pulse Rate 117 H 118 H 113 H Respiratory Rate 31 H 34 H 32 H Blood Pressure Pulse Oximetry Oxygen Delivery Method Oxygen Flow Rate Fraction of Inspired Oxygen 09/30/22 14:38 09/30/22 14:40 09/30/22 14:42 Temperature Pulse Rate 106 H 114 H 119 H Respiratory Rate 36 H 41 H 33 H Blood Pressure Pulse Oximetry Oxygen Delivery Method Oxygen Flow Rate Fraction of Inspired Oxygen 09/30/22 14:44 Temperature Pulse Rate 130 H Respiratory Rate 34 H Blood Pressure 128/60 Pulse Oximetry Oxygen Delivery Method Oxygen Flow Rate Fraction of Inspired Oxygen MDM - SOB/Dyspnea Lab Data 09/30/22 13:55 09/30/22 13:55 Labs: Lab Results 09/30/22 09/30/22 09/30/22 Range/Units 11:10 11:10 11:10 WBC 17.6 H (4.5-11.0) X10^3/uL RBC 3.56 L (4.0-5.2) X10^6/uL Hgb 11.4 L (12.0-16.0) g/dL Hct 34.9 L (36-46) % MCV 98.0 (80-100) fL MCH 31.9 (26-34) PG MCHC 32.6 (30-36) % RDW 15.4 H (11.6-14.8) % Plt Count 173 (150-400) X10^3/uL Neut % (Auto) Not Reportable Lymph % (Auto) Not Reportable [place] % (Auto) Not Reportable Eos % (Auto) Not Reportable Baso % (Auto) Not Reportable Lymph # (Auto) Not Reportable [place] # (Auto) Not Reportable Baso # (Auto) Not Reportable Total Counted 100 Seg Neutrophils % 68.0 (38-70) % Band Neutrophils % 2.0 L (3-7) % Lymphocytes % (Manual) 20.0 L (25-45) % Atypical Lymphs % ( - 0) % Monocytes % (Manual) 10.0 (2-11) % Eosinophils % (Manual) (2-4) % Neutrophils # (Manual) 05512 H (0495-3786) /uL Nucleated RBCs 8 H ( - 0) #/Diff RBC Morphology Not Reportable Polychromasia 1+ H [facility] Cells Acanthocytes (Spur) 1+ H PT (10.1-12.7) SECONDS INR (0.9-1.3) APTT (26-36) SECONDS ABG pH (7.35-7.45) ABG pCO2 (35-45) mmHg ABG pO2 (80-100) mmHg ABG HCO3 (23-27) mmol/L ABG Total CO2 (23-27) mmol/L ABG O2 Saturation (95-100) % ABG Base Excess (-2-3) mmol/L FiO2 Sodium 132 L (137-145) mmol/L Potassium 5.0 (3.4-5.1) mmol/L Chloride 94 L (98-107) mmol/L Carbon Dioxide < 5 L* (22-32) mmol/L BUN 71 H (7-17) mg/dL Creatinine 2.92 H (0.52-1.04) mg/dL Estimated GFR 17 L (>60) mL/min BUN/Creatinine Ratio 24.3 H (6-22) Glucose 111 H (80-110) mg/dL Lactate 14.0 H* (0.7-2.1) mmol/L Calcium 8.1 L (8.4-10.2) mg/dL Magnesium (1.6-2.3) mg/dL Total Bilirubin 1.7 H (0.2-1.3) mg/dL AST 2983 H (14-36) IU/L ALT 1132 H (<35) IU/L Alkaline Phosphatase 107 (38-126) U/L Total Creatine Kinase 807 H (30-135) U/L CK-MB (CK-2) 26.20 H (<2.37) ng/mL CK-MB (CK-2) Rel Index 3.2 (1.5-5.0) % Troponin I 0.432 H* (0.01-0.034) ng/mL NT-Pro-B Natriuret Pep 49093 H (<125) pg/mL Total Protein 7.3 (6.3-8.2) g/dL Albumin 4.2 (3.5-5.0) g/dL Globulin 3.1 (1.7-4.1) g/dL Albumin/Globulin Ratio 1.4 (1.0-2.8) Lipase (23-300) U/L Procalcitonin 0.79 H (<0.5) ng/mL Urine Color Urine Appearance Urine pH (4.5-8.0) Ur Specific [place] (1.000-1.035) Urine Protein (Negative) Urine Glucose (UA) (Negative) g/dL Urine Ketones (NEGATIVE) Urine Occult Blood (Negative) Urine Nitrate (Negative) Urine Bilirubin (NEGATIVE) Urine Urobilinogen (0.2) E.U./dL Ur Leukocyte Esterase (NEGATIVE) Urine RBC (0-5/HPF) Urine WBC (0-5/HPF) Ur Squamous Epith Cells (0-5/HPF) Ur Renal Epithelial Cell (0-1/HPF) Amorphous Sediment Urine Bacteria (None) Hyaline Casts (None) Ur Culture Indicated? Digoxin (0.8-2.0) ng/mL Chlamy pneumoniae PCR (Not Detect) Adenovirus (PCR) (Not Detect) B. pertussis DNA (PCR) (Not Detecte) B.parapertussis DNA PCR (Not Detecte) Coronavirus OC43 (PCR) (Not Detect) Coronavirus HKU1 (PCR) (Not Detect) Coronavirus 229E (PCR) (Not Detect) SARS-CoV-2 (PCR) (Not Detecte) Coronavirus NL63 (PCR) (Not Detect) Human Metapneumovir PCR (Not Detect) Influenza Type A (PCR) (Not Detect) Influenza Type B (PCR) (Not Detect) M. pneumoniae (PCR) (Not Detect) Parainfluenza 1 (PCR) (Not Detect) Parainfluenza 2 (PCR) (Not Detect) Parainfluenza 3 (PCR) (Not Detect) Parainfluenza 4 (PCR) (Not Detect) RSV (PCR) (Not Detect) Entero/Rhino (PCR) (Not Detect) 09/30/22 09/30/22 09/30/22 Range/Units 11:10 11:10 11:10 WBC (4.5-11.0) X10^3/uL RBC (4.0-5.2) X10^6/uL Hgb (12.0-16.0) g/dL Hct (36-46) % MCV (80-100) fL MCH (26-34) PG MCHC (30-36) % RDW (11.6-14.8) % Plt Count (150-400) X10^3/uL Neut % (Auto) Lymph % (Auto) [place] % (Auto) Eos % (Auto) Baso % (Auto) Lymph # (Auto) [place] # (Auto) Baso # (Auto) Total Counted Seg Neutrophils % (38-70) % Band Neutrophils % (3-7) % Lymphocytes % (Manual) (25-45) % Atypical Lymphs % ( - 0) % Monocytes % (Manual) (2-11) % Eosinophils % (Manual) (2-4) % Neutrophils # (Manual) (9697-4338) /uL Nucleated RBCs ( - 0) #/Diff RBC Morphology Polychromasia Sale[place] Cells Acanthocytes (Spur) PT (10.1-12.7) SECONDS INR (0.9-1.3) APTT (26-36) SECONDS ABG pH (7.35-7.45) ABG pCO2 (35-45) mmHg ABG pO2 (80-100) mmHg ABG HCO3 (23-27) mmol/L ABG Total CO2 (23-27) mmol/L ABG O2 Saturation (95-100) % ABG Base Excess (-2-3) mmol/L FiO2 Sodium (137-145) mmol/L Potassium (3.4-5.1) mmol/L Chloride (98-107) mmol/L Carbon Dioxide (22-32) mmol/L BUN (7-17) mg/dL Creatinine (0.52-1.04) mg/dL Estimated GFR (>60) mL/min BUN/Creatinine Ratio (6-22) Glucose (80-110) mg/dL Lactate (0.7-2.1) mmol/L Calcium (8.4-10.2) mg/dL Magnesium (1.6-2.3) mg/dL Total Bilirubin (0.2-1.3) mg/dL AST (14-36) IU/L ALT (<35) IU/L Alkaline Phosphatase (38-126) U/L Total Creatine Kinase (30-135) U/L CK-MB (CK-2) (<2.37) ng/mL CK-MB (CK-2) Rel Index (1.5-5.0) % Troponin I (0.01-0.034) ng/mL NT-Pro-B Natriuret Pep (<125) pg/mL Total Protein (6.3-8.2) g/dL Albumin (3.5-5.0) g/dL Globulin (1.7-4.1) g/dL Albumin/Globulin Ratio (1.0-2.8) Lipase 161 (23-300) U/L Procalcitonin (<0.5) ng/mL Urine Color Urine Appearance Urine pH (4.5-8.0) Ur Specific [place] (1.000-1.035) Urine Protein (Negative) Urine Glucose (UA) (Negative) g/dL Urine Ketones (NEGATIVE) Urine Occult Blood (Negative) Urine Nitrate (Negative) Urine Bilirubin (NEGATIVE) Urine Urobilinogen (0.2) E.U./dL Ur Leukocyte Esterase (NEGATIVE) Urine RBC (0-5/HPF) Urine WBC (0-5/HPF) Ur Squamous Epith Cells (0-5/HPF) Ur Renal Epithelial Cell (0-1/HPF) Amorphous Sediment Urine Bacteria (None) Hyaline Casts (None) Ur Culture Indicated? Digoxin < 0.4 L (0.8-2.0) ng/mL Chlamy pneumoniae PCR Not detected (Not Detect) Adenovirus (PCR) Not detected (Not Detect) B. pertussis DNA (PCR) Not detected (Not Detecte) B.parapertussis DNA PCR Not detected (Not Detecte) Coronavirus OC43 (PCR) Not detected (Not Detect) Coronavirus HKU1 (PCR) Not detected (Not Detect) Coronavirus 229E (PCR) Not detected (Not Detect) SARS-CoV-2 (PCR) Detected H (Not Detecte) Coronavirus NL63 (PCR) Not detected (Not Detect) Human Metapneumovir PCR Not detected (Not Detect) Influenza Type A (PCR) Not detected (Not Detect) Influenza Type B (PCR) Not detected (Not Detect) M. pneumoniae (PCR) Not detected (Not Detect) Parainfluenza 1 (PCR) Not detected (Not Detect) Parainfluenza 2 (PCR) Not detected (Not Detect) Parainfluenza 3 (PCR) Not detected (Not Detect) Parainfluenza 4 (PCR) Not detected (Not Detect) RSV (PCR) Not detected (Not Detect) Entero/Rhino (PCR) Not detected (Not Detect) 09/30/22 09/30/22 09/30/22 Range/Units 11:40 12:20 13:55 WBC (4.5-11.0) X10^3/uL RBC (4.0-5.2) X10^6/uL Hgb (12.0-16.0) g/dL Hct (36-46) % MCV (80-100) fL MCH (26-34) PG MCHC (30-36) % RDW (11.6-14.8) % Plt Count (150-400) X10^3/uL Neut % (Auto) Lymph % (Auto) [place] % (Auto) Eos % (Auto) Baso % (Auto) Lymph # (Auto) [place] # (Auto) Baso # (Auto) Total Counted Seg Neutrophils % (38-70) % Band Neutrophils % (3-7) % Lymphocytes % (Manual) (25-45) % Atypical Lymphs % ( - 0) % Monocytes % (Manual) (2-11) % Eosinophils % (Manual) (2-4) % Neutrophils # (Manual) (0312-2241) /uL Nucleated RBCs ( - 0) #/Diff RBC Morphology Polychromasia [facility] Cells Acanthocytes (Spur) PT (10.1-12.7) SECONDS INR (0.9-1.3) APTT (26-36) SECONDS ABG pH 7.19 L* (7.35-7.45) ABG pCO2 13.7 L* (35-45) mmHg ABG pO2 407 H* (80-100) mmHg ABG HCO3 5 L (23-27) mmol/L ABG Total CO2 6 L (23-27) mmol/L ABG O2 Saturation 100 (95-100) % ABG Base Excess -23.0 L (-2-3) mmol/L FiO2 100 Sodium (137-145) mmol/L Potassium (3.4-5.1) mmol/L Chloride (98-107) mmol/L Carbon Dioxide (22-32) mmol/L BUN (7-17) mg/dL Creatinine (0.52-1.04) mg/dL Estimated GFR (>60) mL/min BUN/Creatinine Ratio (6-22) Glucose (80-110) mg/dL Lactate 16.6 H* (0.7-2.1) mmol/L Calcium (8.4-10.2) mg/dL Magnesium (1.6-2.3) mg/dL Total Bilirubin (0.2-1.3) mg/dL AST (14-36) IU/L ALT (<35) IU/L Alkaline Phosphatase (38-126) U/L Total Creatine Kinase (30-135) U/L CK-MB (CK-2) (<2.37) ng/mL CK-MB (CK-2) Rel Index (1.5-5.0) % Troponin I (0.01-0.034) ng/mL NT-Pro-B Natriuret Pep (<125) pg/mL Total Protein (6.3-8.2) g/dL Albumin (3.5-5.0) g/dL Globulin (1.7-4.1) g/dL Albumin/Globulin Ratio (1.0-2.8) Lipase (23-300) U/L Procalcitonin (<0.5) ng/mL Urine Color Yellow Urine Appearance Sl cloudy Urine pH 5.0 (4.5-8.0) Ur Specific [place] >=1.030 H (1.000-1.035) Urine Protein 2+ H (Negative) Urine Glucose (UA) Negative (Negative) g/dL Urine Ketones Negative (NEGATIVE) Urine Occult Blood 2+ H (Negative) Urine Nitrate Negative (Negative) Urine Bilirubin Negative (NEGATIVE) Urine Urobilinogen 0.2 (0.2) E.U./dL Ur Leukocyte Esterase Negative (NEGATIVE) Urine RBC 1-5/hpf (0-5/HPF) Urine WBC 5-10/hpf H (0-5/HPF) Ur Squamous Epith Cells 5-10 /hpf H (0-5/HPF) Ur Renal Epithelial Cell 0-1/hpf (0-1/HPF) Amorphous Sediment 1+ Urine Bacteria Occasional (0-1) (None) Hyaline Casts 5-10/lpf (None) Ur Culture Indicated? Specimen cultured Digoxin (0.8-2.0) ng/mL Chlamy pneumoniae PCR (Not Detect) Adenovirus (PCR) (Not Detect) B. pertussis DNA (PCR) (Not Detecte) B.parapertussis DNA PCR (Not Detecte) Coronavirus OC43 (PCR) (Not Detect) Coronavirus HKU1 (PCR) (Not Detect) Coronavirus 229E (PCR) (Not Detect) SARS-CoV-2 (PCR) (Not Detecte) Coronavirus NL63 (PCR) (Not Detect) Human Metapneumovir PCR (Not Detect) Influenza Type A (PCR) (Not Detect) Influenza Type B (PCR) (Not Detect) M. pneumoniae (PCR) (Not Detect) Parainfluenza 1 (PCR) (Not Detect) Parainfluenza 2 (PCR) (Not Detect) Parainfluenza 3 (PCR) (Not Detect) Parainfluenza 4 (PCR) (Not Detect) RSV (PCR) (Not Detect) Entero/Rhino (PCR) (Not Detect) 09/30/22 09/30/22 09/30/22 Range/Units 13:55 13:55 13:55 WBC (4.5-11.0) X10^3/uL RBC (4.0-5.2) X10^6/uL Hgb (12.0-16.0) g/dL Hct (36-46) % MCV (80-100) fL MCH (26-34) PG MCHC (30-36) % RDW (11.6-14.8) % Plt Count (150-400) X10^3/uL Neut % (Auto) Lymph % (Auto) [place] % (Auto) Eos % (Auto) Baso % (Auto) Lymph # (Auto) [place] # (Auto) Baso # (Auto) Total Counted Seg Neutrophils % (38-70) % Band Neutrophils % (3-7) % Lymphocytes % (Manual) (25-45) % Atypical Lymphs % ( - 0) % Monocytes % (Manual) (2-11) % Eosinophils % (Manual) (2-4) % Neutrophils # (Manual) (7505-5519) /uL Nucleated RBCs ( - 0) #/Diff RBC Morphology Polychromasia [facility] Cells Acanthocytes (Spur) PT 22.0 H (10.1-12.7) SECONDS INR 1.9 H (0.9-1.3) APTT 28 (26-36) SECONDS ABG pH (7.35-7.45) ABG pCO2 (35-45) mmHg ABG pO2 (80-100) mmHg ABG HCO3 (23-27) mmol/L ABG Total CO2 (23-27) mmol/L ABG O2 Saturation (95-100) % ABG Base Excess (-2-3) mmol/L FiO2 Sodium 133 L (137-145) mmol/L Potassium 4.8 (3.4-5.1) mmol/L Chloride 101 (98-107) mmol/L Carbon Dioxide < 5 L* (22-32) mmol/L BUN 65 H (7-17) mg/dL Creatinine 2.70 H (0.52-1.04) mg/dL Estimated GFR 18 L (>60) mL/min BUN/Creatinine Ratio 24.1 H (6-22) Glucose 104 (80-110) mg/dL Lactate (0.7-2.1) mmol/L Calcium 6.6 L (8.4-10.2) mg/dL Magnesium 2.5 H (1.6-2.3) mg/dL Total Bilirubin 1.5 H (0.2-1.3) mg/dL AST 2614 H (14-36) IU/L ALT 928 H (<35) IU/L Alkaline Phosphatase 87 (38-126) U/L Total Creatine Kinase (30-135) U/L CK-MB (CK-2) (<2.37) ng/mL CK-MB (CK-2) Rel Index (1.5-5.0) % Troponin I 0.383 H* (0.01-0.034) ng/mL NT-Pro-B Natriuret Pep (<125) pg/mL Total Protein 5.4 L (6.3-8.2) g/dL Albumin 3.0 L (3.5-5.0) g/dL Globulin 2.4 (1.7-4.1) g/dL Albumin/Globulin Ratio 1.3 (1.0-2.8) Lipase (23-300) U/L Procalcitonin (<0.5) ng/mL Urine Color Urine Appearance Urine pH (4.5-8.0) Ur Specific [place] (1.000-1.035) Urine Protein (Negative) Urine Glucose (UA) (Negative) g/dL Urine Ketones (NEGATIVE) Urine Occult Blood (Negative) Urine Nitrate (Negative) Urine Bilirubin (NEGATIVE) Urine Urobilinogen (0.2) E.U./dL Ur Leukocyte Esterase (NEGATIVE) Urine RBC (0-5/HPF) Urine WBC (0-5/HPF) Ur Squamous Epith Cells (0-5/HPF) Ur Renal Epithelial Cell (0-1/HPF) Amorphous Sediment Urine Bacteria (None) Hyaline Casts (None) Ur Culture Indicated? Digoxin (0.8-2.0) ng/mL Chlamy pneumoniae PCR (Not Detect) Adenovirus (PCR) (Not Detect) B. pertussis DNA (PCR) (Not Detecte) B.parapertussis DNA PCR (Not Detecte) Coronavirus OC43 (PCR) (Not Detect) Coronavirus HKU1 (PCR) (Not Detect) Coronavirus 229E (PCR) (Not Detect) SARS-CoV-2 (PCR) (Not Detecte) Coronavirus NL63 (PCR) (Not Detect) Human Metapneumovir PCR (Not Detect) Influenza Type A (PCR) (Not Detect) Influenza Type B (PCR) (Not Detect) M. pneumoniae (PCR) (Not Detect) Parainfluenza 1 (PCR) (Not Detect) Parainfluenza 2 (PCR) (Not Detect) Parainfluenza 3 (PCR) (Not Detect) Parainfluenza 4 (PCR) (Not Detect) RSV (PCR) (Not Detect) Entero/Rhino (PCR) (Not Detect) 09/30/22 Range/Units 13:55 WBC 17.7 H (4.5-11.0) X10^3/uL RBC 3.10 L (4.0-5.2) X10^6/uL Hgb 9.8 L (12.0-16.0) g/dL Hct 31.0 L (36-46) % MCV 100.1 H (80-100) fL MCH 31.6 (26-34) PG MCHC 31.6 (30-36) % RDW 15.8 H (11.6-14.8) % Plt Count 140 L (150-400) X10^3/uL Neut % (Auto) Not Reportable Lymph % (Auto) Not Reportable [place] % (Auto) Not Reportable Eos % (Auto) Not Reportable Baso % (Auto) Not Reportable Lymph # (Auto) Not Reportable [place] # (Auto) Not Reportable Baso # (Auto) Not Reportable Total Counted 100 Seg Neutrophils % 65.0 (38-70) % Band Neutrophils % 9.0 H (3-7) % Lymphocytes % (Manual) 16.0 L (25-45) % Atypical Lymphs % 1.0 H ( - 0) % Monocytes % (Manual) 8.0 (2-11) % Eosinophils % (Manual) 1.0 L (2-4) % Neutrophils # (Manual) 77908 H (8720-4455) /uL Nucleated RBCs 7 H ( - 0) #/Diff RBC Morphology Not Reportable Polychromasia 1+ H [facility] Cells 2+ H Acanthocytes (Spur) 1+ H PT (10.1-12.7) SECONDS INR (0.9-1.3) APTT (26-36) SECONDS ABG pH (7.35-7.45) ABG pCO2 (35-45) mmHg ABG pO2 (80-100) mmHg ABG HCO3 (23-27) mmol/L ABG Total CO2 (23-27) mmol/L ABG O2 Saturation (95-100) % ABG Base Excess (-2-3) mmol/L FiO2 Sodium (137-145) mmol/L Potassium (3.4-5.1) mmol/L Chloride (98-107) mmol/L Carbon Dioxide (22-32) mmol/L BUN (7-17) mg/dL Creatinine (0.52-1.04) mg/dL Estimated GFR (>60) mL/min BUN/Creatinine Ratio (6-22) Glucose (80-110) mg/dL Lactate (0.7-2.1) mmol/L Calcium (8.4-10.2) mg/dL Magnesium (1.6-2.3) mg/dL Total Bilirubin (0.2-1.3) mg/dL AST (14-36) IU/L ALT (<35) IU/L Alkaline Phosphatase (38-126) U/L Total Creatine Kinase (30-135) U/L CK-MB (CK-2) (<2.37) ng/mL CK-MB (CK-2) Rel Index (1.5-5.0) % Troponin I (0.01-0.034) ng/mL NT-Pro-B Natriuret Pep (<125) pg/mL Total Protein (6.3-8.2) g/dL Albumin (3.5-5.0) g/dL Globulin (1.7-4.1) g/dL Albumin/Globulin Ratio (1.0-2.8) Lipase (23-300) U/L Procalcitonin (<0.5) ng/mL Urine Color Urine Appearance Urine pH (4.5-8.0) Ur Specific [place] (1.000-1.035) Urine Protein (Negative) Urine Glucose (UA) (Negative) g/dL Urine Ketones (NEGATIVE) Urine Occult Blood (Negative) Urine Nitrate (Negative) Urine Bilirubin (NEGATIVE) Urine Urobilinogen (0.2) E.U./dL Ur Leukocyte Esterase (NEGATIVE) Urine RBC (0-5/HPF) Urine WBC (0-5/HPF) Ur Squamous Epith Cells (0-5/HPF) Ur Renal Epithelial Cell (0-1/HPF) Amorphous Sediment Urine Bacteria (None) Hyaline Casts (None) Ur Culture Indicated? Digoxin (0.8-2.0) ng/mL Chlamy pneumoniae PCR (Not Detect) Adenovirus (PCR) (Not Detect) B. pertussis DNA (PCR) (Not Detecte) B.parapertussis DNA PCR (Not Detecte) Coronavirus OC43 (PCR) (Not Detect) Coronavirus HKU1 (PCR) (Not Detect) Coronavirus 229E (PCR) (Not Detect) SARS-CoV-2 (PCR) (Not Detecte) Coronavirus NL63 (PCR) (Not Detect) Human Metapneumovir PCR (Not Detect) Influenza Type A (PCR) (Not Detect) Influenza Type B (PCR) (Not Detect) M. pneumoniae (PCR) (Not Detect) Parainfluenza 1 (PCR) (Not Detect) Parainfluenza 2 (PCR) (Not Detect) Parainfluenza 3 (PCR) (Not Detect) Parainfluenza 4 (PCR) (Not Detect) RSV (PCR) (Not Detect) Entero/Rhino (PCR) (Not Detect) Imaging Data Chest x-ray: Radiologist's Impression: Close Chest X-Ray (Signed) Mathew Hurst - 09/30/22 Breast Ultrasound (Signed) MarvinRohit - 04/15/22 Mammogram, Additional Views (Signed) MarvinRohit - 04/15/22 Mammogram Screening (Signed) Kendrick Stoner - 03/26/22 Pelvis Ultrasound (Signed) Kelli Ellison - 12/30/21 Facet Joint Injection X-Ray (Signed) Kelli Ellison - 05/15/21 Lumbar Spine X-Ray (Signed) Nickolas Manzano - 05/05/21 Mammogram Screening (Signed) Emir Barron - 03/08/21 Injection Lumbar, Sacrum (Signed) Frandy Hewitt - 01/30/21 Pelvis MRI (Signed) Frandy Hewitt - 11/13/20 Lumbar Spine MRI (Signed) Bernarda Davila - 11/13/20 Bone Densitometry 11/13/20 Facet Joint Injection X-Ray (Signed) Kalyan Snider - 10/31/20 SI Joint X-Ray (Signed) Kalyan Snider - 10/31/20 Shoulder X-Ray (Signed) Frandy Hewitt - 08/06/20 Knee X-Ray (Signed) Frandy Hewitt - 08/06/20 Injection Lumbar, Sacrum (Signed) Geoffrey Hill - 05/07/20 Hip X-Ray (Signed) Rosio Henderson - 05/04/20 Mammogram, Additional Views (Signed) Emir Barron - 02/07/20 Mammogram Screening (Signed) Barbie Vidales - 01/17/20 Mammogram Screening (Signed) Barbie Vidales - 10/19/[address] [address] XRay Report Signed Patient: Constanza Owusu MR#: [id number] : 1950 Acct:[id number] Age/Sex: 72 / F Date of Service: 09/30/22 Loc: ED Accession Number: [id number] ?? Procedure: XR chest 1V Ordering Provider: Mignon Rouse D.O. PROCEDURE:? XR CHEST 1V ? INDICATIONS:? CHEST PAIN ? TECHNIQUE:? One view of the chest was acquired.? ? COMPARISON:? [facility], CR, XR CHEST 2 VIEWS, 09/27/2022, 8:58. ? FINDINGS:? ? Surgical changes and devices:? None.? ? Lungs and pleura:? Resolution of right basilar infiltrate.? Lungs are clear.? No pleural effusions or pneumothorax.? ? Mediastinum:? Mediastinal contours appear normal.? Mild cardiomegaly. ? Bones and chest wall:? No suspicious bony lesions.? Overlying soft tissues appear unremarkable.? ? IMPRESSION:? ? 1. Interval resolution of right basilar infiltrate. ? 2. Mild cardiomegaly. ? ? Dictated by: Mathew Hurst M.D. on 09/30/2022 at 11:13 ? ? Approved by: Mathew Hurst M.D. on 09/30/2022 at 11:14?? ECG Data Attestation: I personally reviewed and interpreted this ECG as follows: Interpretation: Heart rate 160 QRS 82 QTC 489. Patient has irregularly irregular rhythm with no P waves clearly defined. MDM Narrative Medical decision making narrative: This is a 72-year-old female with no reported history who presents in distress with tachycardia, hypoxia patient is in AFib RVR, she does not appear clinically fluid overloaded initially on exam she has decreased cap refill and started on BiPAP, 10 mg of dealt to see if this improves her right breathing. Patient did not tolerate BiPAP well. Was placed on high-flow she much comfortable with. Unable to get a good O2 sats to perfusion. Patient's blood pressure improved after we slowed down her heart rate with some diltiazem she got 10 in 10 was being started on a drip. Tried BiPAP but she was much more uncomfortable put her on high-flow. ABG shows metabolic acidosis with a pH of 7.18, pCO2 of 13 PO2 of 400 and a bicarb of 5.2 patient's workup seems very suspicious for possible ischemic bowel. She has a lactate of 14 elevated LFTs including bilirubin AST ALT in the 2001 1000 range, lipase is negative. She is acute kidney injury with multiorgan dysfunction. Patient's BUN is elevated at 71, potassium is appropriate. White count is 17. Patient is noted to be COVID positive. Patient has been at times hypotensive and diltiazem was stopped. Patient heart rate continued to be 130s but has bumped up to 150s. Patient chest x-ray did not show clear change, was able to obtain an ultrasound which shows 1 cm thickening and some right upper quadrant fluid suspect patient has ischemic bowel possibly acute cholecystitis or gangrenous gallbladder. Patient case was discussed with our general surgeon before ultrasound was available he reviewed this image as well. Discussion about taking patient to the OR for ex lap, we do not have CT available today machine is down to evaluate for CT Angio of chest or abd/pelvis for cardiac, vascular, pulmonary or intra-abdominal process. We also began calling for transfer as even if patient goes to the OR and survives surgery she would be too complicated to stay. Call put out to multiple facilities including [facility], [facility], [facility], [place], [facility] and I was able to talk with the bridge contractor [place]. He accepts for transfe and can take the patient. Discussed if he would like us to take her to the OR 1st, my concern about ischemic gut. He feels probably more appropriate to transfer at this time, Dr. Christianson our surgeon did see the patient here in the department evaluated her along with the hospitalist Dr. Massey and decision was made to proceed with transfer. Patient has received almost 3 L of fluid, she did start on nor epi drip, she was on diltiazem but that was stopped, patient has received antibiotics including vanco. Discussed with the hospitalist about starting amiodarone and bridge contractor at [place] agrees with that plan. Dr. Fischer, as bridge contractor at [place]. Dr. Christianson our general surgeon also discussed with Dr. Ku of the bridge contractor at [place] whether or not to take patient to the OR as there is high suspicion from our end for acute intra-abdominal process. After discussion decision was made to transport patient. Discussed at length with patient and at bedside she is full code. Patient transport arrived patient had been on high-flow. We tried trialing her with non-rebreather she did not tolerate BiPAP all just from discomfort. Was felt she required intubation for safety. Patient did have a drop in her blood pressure was started on epinephrine was given 1 push dose. Some of this may been related to the amiodarone bolus and been given although given over 20 minutes instead of 10 drop in blood pressure was somewhat associated with this. Heart rate had improved to the 100-110 range she may have lost some of her cardiac kick. Patient received ketamine tolerated this well was given succinylcholine and intubated with a 7.0 ETT at the teeth at 22. Patient's blood pressure improved with secondary infusion and patient was then loaded by airlift and transported via helicopter to [place]. Critical Care Time Critical Care Time Critical Care Time: Yes Total Critical Care Time: 80 Attestation: The high probability of a clinically significant, sudden or life threatening deterioration of the [cardiac, pulm, gi] system(s) required my full and direct attention, intervention and personal management. The aggregate critical care time was [] minutes. This time is in addition to time spent performing reported procedures but includes the following: [x] Data Review and interpretation [x] Patient assessment and monitoring of vital signs [x] Documentation [x] Medication orders and management Discharge Plan Departure Patient Disposition: [facility] Clinical Impression: Septic shock, Atrial fibrillation with RVR, COVID-19 virus infection, Acute kidney injury, Acidosis, lactic, Hepatic dysfunction, Metabolic acidosis Prescriptions: No Action tramadol 50 mg tablet 50 mg PO BID PRN (Reason: pain) Qty: 42 2RF clobetasol 0.05 % cream 1 applic topical BID Qty: 30 2RF Rx Instructions: legs and chest area for skin rash. valacyclovir 1 gram tablet 500 mg PO BID PRN (Reason: Vaginal Irritation) Qty: 30 2RF amoxicillin-pot clavulanate 875-125 mg tablet 1 tab PO BID Patient Comments: TAKE 1 TABLET BY MOUTH TWICE DAILY FOR 7 DAYS gabapentin 300 mg capsule 300 mg PO TID PRN (Reason: Pain (Scale Score 1-3)) Rx Instructions: take 1 cap TID beta carotene 25,000 unit capsule 25,000 unit PO DAILY lysine 500 mg tablet 500 mg PO DAILY ascorbic acid (vitamin C) 500 mg/5 mL syrup 500 mg PO DAILY cyanocobalamin (vitamin B-12) 5,000 mcg/mL drops 5,000 mcg SL DAILY Referrals: rSikanth Jones MD [Primary Care Provider] -
[2022-09-30] MEDS: dilTIAZem 5 MG/ML SDV 10 MG IV ×2 (11:19→11:24)
[2022-09-30 11:27] LABS: Add Manual Diff / Slide Review YES; Hematocrit 34.9 % (36-46); Hemoglobin 11.4 g/dL (12.0-16.0); Mean Corpuscular HGB Conc 32.6 % (30-36); Mean Corpuscular Hemoglobin 31.9 PG (26-34); Platelet Count 173 X10^3/uL (150-400); Red Blood Cell Count 3.56 X10^6/uL (4.0-5.2); Red Cell Distribution Width 15.4 % (11.6-14.8); White Blood Cell Count 17.6 X10^3/uL (4.5-11.0)
--- NOTE | 2022-09-30 11:29 | PC.NURSE ---
Running note: Pt arrived via w/c w/ profound sob. Placed on NRB @ 15L w/o improvment, than attempted bipap which pt didn't tolerate. Now transitioning to high flow.
[2022-09-30] MEDS: DILTIAZEM 125 MG/125 ML PIGGYBACK IV (11:31)
[2022-09-30 11:32] LABS: Albumin 4.2 g/dL (3.5-5.0); Albumin Globulin Ratio 1.4 (1.0-2.8); Alkaline Phosphatase 107 U/L (38-126); BUN Creatinine Ratio 24.3 (6-22); Bilirubin Total 1.7 mg/dL (0.2-1.3); Blood Urea Nitrogen 71 mg/dL (7-17); Calcium 8.1 mg/dL (8.4-10.2); Chloride 94 mmol/L (98-107); Creatine Kinase 807 U/L (30-135); Estimated Glomerular Filt Rate 17 mL/min (>60); Globulin 3.1 g/dL (1.7-4.1); Glucose 111 mg/dL (80-110); Sodium 132 mmol/L (137-145); Total Protein 7.3 g/dL (6.3-8.2)
[2022-09-30] MEDS: ONDANSETRON 4 MG/2 ML INJ (11:32)
[2022-09-30 11:45] LABS: Acanthocytes 1+; Neutrophils Absolute Manual 12320 /uL (3000-5900); Nucleated Red Blood Cells 8 #/Diff; Polychromasia 1+; Total Cells Counted 100
[2022-09-30 11:48] LABS: PCO2 ABG 13.7 mmHg (35-45); PO2 ABG 407 mmHg (80-100); pH ABG 7.19 (7.35-7.45)
[2022-09-30 11:49] LABS: Procalcitonin 0.79 ng/mL (<0.5)
[2022-09-30 11:49] LABS: Fractionated Inspired Oxygen 100; HCO3 ABG 5 mmol/L (23-27); Oxygen Saturation ABG 100 % (95-100); TCO2 ABG 6 mmol/L (23-27)
[2022-09-30 11:54] LABS: Alanine Aminotransferase 1132 IU/L (<35); HEMOLYSIS 80 (0-50)
[2022-09-30 11:55] LABS: Carbon Dioxide < 5 mmol/L (22-32)
[2022-09-30 11:56] LABS: CKMB % Relative Index 3.2 % (1.5-5.0)
[2022-09-30 11:57] LABS: Troponin I 0.432 ng/mL (0.01-0.034)
[2022-09-30] MEDS: VANCOMYCIN 1,000 MG/200 ML PIGGYBACK 200 MG IV (11:59)
[2022-09-30] MEDS: SODIUM CHLORIDE 0.9% 532.06 ML IV (12:02)
--- NOTE | 2022-09-30 12:02 | DI.US.S_ITS ---
PROCEDURE: US ABDOMEN COMPLETE INDICATIONS: SEPESIS. CHOLANGITIS. ?ACUTE KIDNEY INJURY TECHNIQUE: Real-time scanning was performed of the abdominal and retroperitoneal organs, with image documentation. COMPARISON: [facility], US, ABDOMEN COMPLETE, 11/17/2011, 8:09. FINDINGS: Liver: Liver is normal in size and homogeneous in echotexture. Gallbladder: Markedly thickened gallbladder wall is seen measures up to 10 mm in thickness. No pericholecystic fluid. No definite sonographic Page sign. Biliary ducts: Intrahepatic bile ducts are non-dilated. Extrahepatic bile duct caliber measures 2.3 mm. Normal is 6-7 mm or less in diameter, or 10 mm or less post-cholecystectomy. Pancreas: Visualized portions of the pancreas are sonographically normal. Spleen: Spleen is small in size and is homogeneous in echotexture. Kidneys: Kidneys are normal in size and echotexture. Right kidney measures 9 cm long; left kidney measures 10 cm long. There is no hydronephrosis or solid appearing renal lesion. Punctate echogenic foci are seen in bilateral kidneys measures up to 3.9 mm in size in midpole of left kidney. Right renal cortical thinning is seen. Aorta: Visualized aorta is normal in caliber at less than 3 cm. Iliacs: Proximal common iliac arteries are normal in caliber at less than 2.5 cm. IVC: Intrahepatic inferior vena cava is patent. Miscellaneous: Trace amount of free fluid in right upper quadrant abdomen is seen.. Trace amount of bilateral pleural effusion is seen. IMPRESSION: 1. Marked gallbladder wall thickening with edema. No pericholecystic fluid or definite sonographic Page sign. No gallstones. Finding may represent chronic cholecystitis. 2. No biliary ductal dilatation. 3. Normal appearing liver and pancreas. Slightly atrophic spleen. 4. Slightly atrophic right kidney with renal cortical thinning. Bilateral tiny nonobstructing renal calculi. No hydronephrosis. 5. Trace amount of right upper quadrant free fluid. Trace bilateral pleural effusion. Dictated by: Nickolas Manzano M.D. on 09/30/2022 at 12:53 Approved by: Nickolas Manzano M.D. on 09/30/2022 at 12:57
[2022-09-30 12:14] LABS: Aspartate Aminotransferase 2983 IU/L (14-36)
[2022-09-30 12:26] LABS: NT-proBNP (BNP-Adult 18+) 32500 pg/mL (<125)
[2022-09-30] MEDS: SODIUM CHLORIDE 0.9% FLUSH 9 ML, EPINEPHrine 0.1 MG IV ×2 (12:27→14:33)
[2022-09-30 12:33] LABS: Appearance Urine UA SL CLOUDY; Bilirubin Urine UA NEGATIVE (NEGATIVE); Color Urine UA YELLOW; Glucose Urine UA NEGATIVE (Negative); Ketones Urine UA NEGATIVE (NEGATIVE); Leukocyte Esterase Urine UA NEGATIVE (NEGATIVE); Nitrite Urine UA NEGATIVE (Negative); Occult Blood Urine UA 2+ (Negative); Protein Urine UA 2+ (Negative); Specific Gravity Urine UA >=1.030 (1.000-1.035); Urobilinogen Urine UA 0.2 E.U./dL (0.2)
[2022-09-30 12:38] LABS: Adenovirus Not Detected (Not Detect); Coronavirus 229E Not Detected (Not Detect); Coronavirus HKU1 Not Detected (Not Detect); Coronavirus NL 63 Not Detected (Not Detect)
[2022-09-30 12:39] LABS: B. parapertussis Not Detected (Not Detecte); Bordetella pertussis Not Detected (Not Detecte); Chlamydophila pneumoniae Not Detected (Not Detect); Coronavirus OC43 Not Detected (Not Detect); Human Metapneumovirus Not Detected (Not Detect); Human Rhinovirus/Enterovirus Not Detected (Not Detect); Influenza A Not Detected (Not Detect); Influenza B Not Detected (Not Detect); Mycoplasma pneumoniae Not Detected (Not Detect); Parainfluenza Virus 1 Not Detected (Not Detect); Parainfluenza Virus 2 Not Detected (Not Detect); Parainfluenza Virus 3 Not Detected (Not Detect); Parainfluenza Virus 4 Not Detected (Not Detect); Respiratory Syncytial Virus Not Detected (Not Detect); SARS- CoV-2 Detected (Not Detecte)
[2022-09-30 12:47] LABS: Digoxin < 0.4 ng/mL (0.8-2.0)
[2022-09-30 12:54] LABS: RBC Urine 1-5/HPF (0-5/HPF); Renal Epithelial Cells Urine 0-1/HPF (0-1/HPF); Squamous Epithelial Cell Urine 5-10 /HPF (0-5/HPF); WBC Urine 5-10/HPF (0-5/HPF)
[2022-09-30 12:55] LABS: Amorphous Sediment Urine 1+; Bacteria Urine Occasional (0-1); Culture Indicated Urine Specimen Cultured; Hyaline Casts Urine 5-10/LPF
[2022-09-30] MEDS: levoFLOXacin 750 MG/150 ML PIGGYBACK 100 MG IV (13:10)
[2022-09-30 13:14] LABS: Lipase 161 U/L (23-300)
[2022-09-30 13:18] LABS: Reflexed Lactate in 2 Hours Y
[2022-09-30] MEDS: NOREPINEPHRINE BITARTRATE/D5W 4 MG/250 ML PLAST..BAG 30 MG IV (13:22)
[2022-09-30] MEDS: SODIUM CHLORIDE 0.9% 1,000 ML 150 ML IV (13:32)
--- NOTE | 2022-09-30 13:33 | PM.CN ---
History of Present Illness Consult details Date Patient Seen: 09/30/22 Time Patient Seen: 13:33 Chief complaint: pneouminia Narrative: Constanza Owusu is a 72yo female with PMH of anxiety, HLD, recent ex lap for persistent RLQ pain with no findings and unvaccinated against COVID who presents with 5 days of SOB, lower abd cramping and NV. Patient states she was in her normal state of health until last week when she suddenly developed SOB with exertion. She went to 2 days later on 09/27 where PNA was diagnosed by CXR and she was started on augmentin. She continued to take it but felt worse and worse, with poor appetite and unable to keep much down due to vomiting. She presented to her PCP's office this morning and was promptly sent to the ED. In the ED patient's labs were startling, with a lactate of 14, Cr 2.29, WBC 17, procal 0.79, troponin 0.432, BNP 81973, AST 2983 and ALT 1132. She was found to be in A-fib RVR with rate of 172 and started on a dilt drip as her BP was 133/82. Her BP then dropped to 67/44 so the dilt drip was stopped. She was given 3L boluses. Found to be COVID positive on resp PCR. ABG showed pH 7.19, pCO2 13.7, pO2 407 and bicarb 5 consistent with metabolic acidosis with respiratory compensation. Patient is currently on HFNC and speaking to me. She states she is normally healthy. She reports some cramping in her legs the past few days as well but no swelling. She denies diarrhea but constipation instead. She says her abd pain is lower and crampy, which was been present for a couple months which led to her ex lap with gynecology which was unremarkable 1 month ago. She would like to be full code. Denies CP. Meds Home Medications and Allergies Home Medications Medication Instructions Recorded Confirmed Type ascorbic acid (vitamin C) 500 mg/5 500 mg PO DAILY 02/14/18 09/30/22 History mL oral syrup beta carotene 7,500 mcg (25,000 25,000 unit PO DAILY 02/14/18 09/30/22 History unit) capsule cyanocobalamin (vitamin B-12) 5,000 mcg sublingual DAILY 02/14/18 09/30/22 History 5,000 mcg/mL sublingual drops lysine 500 mg tablet 500 mg PO DAILY 02/14/18 09/30/22 History clobetasol 0.05 % topical cream 1 applic topical BID #30 grams 07/30/22 09/30/22 Rx valacyclovir 1 gram tablet 500 mg PO BID PRN Vaginal 07/30/22 09/30/22 Rx Irritation #30 tabs tramadol 50 mg tablet 50 mg PO BID PRN pain #42 tabs 09/08/22 09/30/22 Rx amoxicillin 875 mg-potassium 1 tab PO BID 09/30/22 09/30/22 History clavulanate 125 mg tablet gabapentin 300 mg capsule 300 mg PO TID PRN Pain (Scale 09/30/22 09/30/22 History Score 1-3) Allergies Allergy/AdvReac Type Severity Reaction Status Date / Time amoxicillin [From Augmentin] Allergy Severe vomiting Verified 09/30/22 10:22 clavulanic acid Allergy Severe vomiting Verified 09/30/22 10:22 [From Augmentin] celecoxib [From Celebrex] Allergy Intermediate Rash Verified 09/30/22 10:22 Review of Systems Review of Systems Narrative: All other systems reviewed with the patient and are negative unless otherwise stated. Exam Vital Signs (past 8 hours): - 09/30/22 11:20 09/30/22 10:55 09/30/22 11:31 Temperature 95.7 F L Pulse Rate 172 H 172 H Respiratory Rate 50 H 42 H Blood Pressure Pulse Oximetry 80 L Oxygen Delivery Method Room Air Oxygen Flow Rate Fraction of Inspired Oxygen 60 09/30/22 11:01 09/30/22 11:02 09/30/22 11:04 Temperature Pulse Rate 172 H 170 H 171 H Respiratory Rate 33 H 35 H 36 H Blood Pressure Pulse Oximetry 88 L 85 L 82 L Oxygen Delivery Method Oxygen Flow Rate Fraction of Inspired Oxygen 09/30/22 11:06 09/30/22 11:08 09/30/22 11:10 Temperature Pulse Rate 172 H 170 H 171 H Respiratory Rate 43 H 38 H 36 H Blood Pressure Pulse Oximetry 91 Oxygen Delivery Method Oxygen Flow Rate Fraction of Inspired Oxygen 09/30/22 11:12 09/30/22 11:14 09/30/22 11:16 Temperature Pulse Rate 166 H 164 H 170 H Respiratory Rate 33 H 35 H 35 H Blood Pressure Pulse Oximetry 93 Oxygen Delivery Method Oxygen Flow Rate Fraction of Inspired Oxygen 09/30/22 11:18 09/30/22 11:20 09/30/22 11:22 Temperature Pulse Rate 170 H 173 H 151 H Respiratory Rate 32 H 33 H 36 H Blood Pressure Pulse Oximetry 91 95 Oxygen Delivery Method Oxygen Flow Rate Fraction of Inspired Oxygen 09/30/22 11:24 09/30/22 11:26 09/30/22 11:28 Temperature Pulse Rate 163 H 142 H Respiratory Rate 39 H 40 H Blood Pressure 133/82 Pulse Oximetry 94 88 L Oxygen Delivery Method Oxygen Flow Rate Fraction of Inspired Oxygen 09/30/22 11:28 09/30/22 11:30 09/30/22 11:32 Temperature Pulse Rate 129 H 140 H 129 H Respiratory Rate 42 H 41 H 34 H Blood Pressure Pulse Oximetry 90 L 90 L 82 L Oxygen Delivery Method Oxygen Flow Rate Fraction of Inspired Oxygen 09/30/22 11:34 09/30/22 11:36 09/30/22 11:38 Temperature Pulse Rate 143 H 140 H 148 H Respiratory Rate 31 H 34 H 25 H Blood Pressure Pulse Oximetry 86 L 85 L 82 L Oxygen Delivery Method Oxygen Flow Rate Fraction of Inspired Oxygen 09/30/22 11:40 09/30/22 11:42 09/30/22 11:44 Temperature Pulse Rate 150 H 147 H 157 H Respiratory Rate 29 H 36 H 34 H Blood Pressure Pulse Oximetry 82 L 87 L 83 L Oxygen Delivery Method Oxygen Flow Rate Fraction of Inspired Oxygen 09/30/22 11:46 09/30/22 11:48 09/30/22 11:50 Temperature Pulse Rate 145 H 142 H 158 H Respiratory Rate 33 H 34 H 34 H Blood Pressure Pulse Oximetry 82 L 81 L Oxygen Delivery Method Oxygen Flow Rate Fraction of Inspired Oxygen 09/30/22 11:52 09/30/22 11:54 09/30/22 11:56 Temperature Pulse Rate 162 H 153 H Respiratory Rate 38 H 43 H Blood Pressure 116/58 L Pulse Oximetry 77 L 86 L Oxygen Delivery Method Oxygen Flow Rate Fraction of Inspired Oxygen 09/30/22 11:56 09/30/22 11:58 09/30/22 12:00 Temperature Pulse Rate 156 H 151 H 153 H Respiratory Rate 32 H 33 H 32 H Blood Pressure Pulse Oximetry 81 L 82 L 81 L Oxygen Delivery Method High Flow Nasal Cannula Oxygen Flow Rate Fraction of Inspired Oxygen 09/30/22 12:01 09/30/22 12:01 09/30/22 12:02 Temperature Pulse Rate 154 H 153 H Respiratory Rate 31 H 33 H Blood Pressure 133/79 Pulse Oximetry 83 L 83 L Oxygen Delivery Method Oxygen Flow Rate Fraction of Inspired Oxygen 09/30/22 12:04 09/30/22 12:06 09/30/22 12:08 Temperature Pulse Rate 153 H 154 H 149 H Respiratory Rate 35 H 36 H 36 H Blood Pressure Pulse Oximetry 89 L 78 L Oxygen Delivery Method Oxygen Flow Rate Fraction of Inspired Oxygen 09/30/22 12:10 09/30/22 12:12 09/30/22 12:14 Temperature Pulse Rate 154 H 153 H 144 H Respiratory Rate 28 H 35 H 35 H Blood Pressure Pulse Oximetry 79 L 69 L 80 L Oxygen Delivery Method Oxygen Flow Rate Fraction of Inspired Oxygen 09/30/22 12:15 09/30/22 12:15 09/30/22 12:16 Temperature Pulse Rate 143 H 143 H Respiratory Rate 29 H 35 H Blood Pressure 85/63 L Pulse Oximetry 61 L 70 L Oxygen Delivery Method Oxygen Flow Rate Fraction of Inspired Oxygen 09/30/22 12:18 09/30/22 12:20 09/30/22 12:20 Temperature Pulse Rate 141 H 148 H Respiratory Rate 31 H 51 H Blood Pressure 67/44 L Pulse Oximetry 60 L 79 L Oxygen Delivery Method Oxygen Flow Rate Fraction of Inspired Oxygen 09/30/22 12:22 09/30/22 12:24 09/30/22 12:25 Temperature 94.5 F L 94.3 F L Pulse Rate 136 H 136 H 142 H Respiratory Rate 55 H 46 H 52 H Blood Pressure Pulse Oximetry 56 L 41 L 52 L Oxygen Delivery Method Oxygen Flow Rate Fraction of Inspired Oxygen 09/30/22 12:25 09/30/22 12:26 09/30/22 12:28 Temperature 94.3 F L 94.6 F L Pulse Rate 150 H 149 H Respiratory Rate 63 H 45 H Blood Pressure 126/61 Pulse Oximetry Oxygen Delivery Method Oxygen Flow Rate Fraction of Inspired Oxygen 09/30/22 12:29 09/30/22 12:29 09/30/22 12:30 Temperature 94.6 F L 94.1 F L Pulse Rate 151 H 164 H Respiratory Rate 42 H 50 H Blood Pressure 98/61 Pulse Oximetry 70 L Oxygen Delivery Method Oxygen Flow Rate Fraction of Inspired Oxygen 09/30/22 12:32 09/30/22 12:32 09/30/22 12:34 Temperature 94.5 F L 94.6 F L Pulse Rate 143 H 143 H Respiratory Rate 45 H 38 H Blood Pressure 107/78 Pulse Oximetry 75 L 59 L Oxygen Delivery Method Oxygen Flow Rate Fraction of Inspired Oxygen 09/30/22 12:36 09/30/22 12:38 09/30/22 12:40 Temperature 94.5 F L 94.6 F L Pulse Rate 147 H 144 H Respiratory Rate 49 H 50 H Blood Pressure 101/63 Pulse Oximetry Oxygen Delivery Method Oxygen Flow Rate Fraction of Inspired Oxygen 09/30/22 12:40 09/30/22 12:42 09/30/22 12:44 Temperature 94.8 F L 95.0 F L 95.0 F L Pulse Rate 147 H 145 H 144 H Respiratory Rate 43 H 40 H 37 H Blood Pressure Pulse Oximetry Oxygen Delivery Method Oxygen Flow Rate Fraction of Inspired Oxygen 09/30/22 12:45 09/30/22 12:45 09/30/22 12:46 Temperature 95.0 F L 94.8 F L Pulse Rate 142 H 142 H Respiratory Rate 41 H 40 H Blood Pressure 94/65 Pulse Oximetry Oxygen Delivery Method Oxygen Flow Rate Fraction of Inspired Oxygen 09/30/22 12:48 09/30/22 12:50 09/30/22 12:50 Temperature 94.8 F L 95.0 F L Pulse Rate 145 H 141 H Respiratory Rate 43 H 42 H Blood Pressure 100/68 Pulse Oximetry Oxygen Delivery Method Oxygen Flow Rate Fraction of Inspired Oxygen 09/30/22 12:52 09/30/22 13:01 09/30/22 12:54 Temperature 95.0 F L 95.0 F L Pulse Rate 146 H 145 H 145 H Respiratory Rate 45 H 40 H 37 H Blood Pressure Pulse Oximetry Oxygen Delivery Method Oxygen Flow Rate Fraction of Inspired Oxygen 09/30/22 12:55 09/30/22 12:55 09/30/22 12:56 Temperature 95.0 F L 95.2 F L Pulse Rate 152 H 143 H Respiratory Rate 35 H 35 H Blood Pressure 100/65 Pulse Oximetry Oxygen Delivery Method Oxygen Flow Rate Fraction of Inspired Oxygen 09/30/22 12:58 09/30/22 12:59 09/30/22 12:59 Temperature 95.2 F L 95.2 F L Pulse Rate 149 H 146 H Respiratory Rate 42 H 41 H Blood Pressure 102/60 Pulse Oximetry Oxygen Delivery Method Oxygen Flow Rate Fraction of Inspired Oxygen 09/30/22 13:00 09/30/22 13:01 09/30/22 13:01 Temperature 95.2 F L 95.0 F L Pulse Rate 150 H 134 H Respiratory Rate 36 H 33 H Blood Pressure 106/83 Pulse Oximetry Oxygen Delivery Method Oxygen Flow Rate Fraction of Inspired Oxygen 09/30/22 13:02 09/30/22 13:04 09/30/22 13:05 Temperature 95.0 F L 95.0 F L 95.0 F L Pulse Rate 146 H 151 H 150 H Respiratory Rate 40 H 43 H 41 H Blood Pressure Pulse Oximetry 51 L Oxygen Delivery Method Oxygen Flow Rate Fraction of Inspired Oxygen 09/30/22 13:05 09/30/22 13:06 09/30/22 13:08 Temperature 95.0 F L 95.0 F L Pulse Rate 151 H 150 H Respiratory Rate 47 H 40 H Blood Pressure 102/69 Pulse Oximetry Oxygen Delivery Method Oxygen Flow Rate Fraction of Inspired Oxygen 09/30/22 13:10 09/30/22 13:10 Temperature 95.0 F L Pulse Rate 147 H Respiratory Rate 39 H Blood Pressure 90/70 Pulse Oximetry 88 L Oxygen Delivery Method Oxygen Flow Rate 50 Fraction of Inspired Oxygen Fraction of Inspired Oxygen 60 Oxygen Delivery Method High Flow Nasal Cannula Oxygen Flow Rate 50 Narrative Exam Narrative: GEN: moderate acute distress, on HFNC HEENT: moist mucous membranes, PERRL NECK: trachea midline, no JVD CV: tachycardic and irregularly irregular, no murmurs, bedside pocus shows no pericardial effusion, appears to be good EF PULM: clear bilaterally, no rales or wheezes ABD: soft, mildly tender in lower quadrants, negative Page's sign, nondistended, no organomegaly EXT: evidence of mottling on lower extremity NEURO: awake, alert, oriented, no focal deficits POCUS Cardiac Multiple views of the heart were obtained. Cardiac motion was present. Pericardial effusion was absent. The right ventricle did not appear enlarged. Global LV function was not grossly reduced. Objective Labs 09/30/22 13:55 09/30/22 11:10 Labs: Laboratory Results - last 24 hr 09/30/22 09/30/22 09/30/22 11:10 11:10 11:10 WBC 17.6 H RBC 3.56 L Hgb 11.4 L Hct 34.9 L MCV 98.0 MCH 31.9 MCHC 32.6 RDW 15.4 H Plt Count 173 Neut % (Auto) Not Reportable Lymph % (Auto) Not Reportable [place] % (Auto) Not Reportable Eos % (Auto) Not Reportable Baso % (Auto) Not Reportable Lymph # (Auto) Not Reportable [place] # (Auto) Not Reportable Baso # (Auto) Not Reportable Total Counted 100 Seg Neutrophils % 68.0 Band Neutrophils % 2.0 L Lymphocytes % (Manual) 20.0 L Monocytes % (Manual) 10.0 Neutrophils # (Manual) 25445 H Nucleated RBCs 8 H RBC Morphology Not Reportable Polychromasia 1+ H Acanthocytes (Spur) 1+ H ABG pH ABG pCO2 ABG pO2 ABG HCO3 ABG Total CO2 ABG O2 Saturation ABG Base Excess FiO2 Sodium 132 L Potassium 5.0 Chloride 94 L Carbon Dioxide < 5 L* BUN 71 H Creatinine 2.92 H Estimated GFR 17 L BUN/Creatinine Ratio 24.3 H Glucose 111 H Lactate 14.0 H* Calcium 8.1 L Total Bilirubin 1.7 H AST 2983 H ALT 1132 H Alkaline Phosphatase 107 Total Creatine Kinase 807 H CK-MB (CK-2) 26.20 H CK-MB (CK-2) Rel Index 3.2 Troponin I 0.432 H* NT-Pro-B Natriuret Pep 72588 H Total Protein 7.3 Albumin 4.2 Globulin 3.1 Albumin/Globulin Ratio 1.4 Lipase Procalcitonin 0.79 H Urine Color Urine Appearance Urine pH Ur Specific [place] Urine Protein Urine Glucose (UA) Urine Ketones Urine Occult Blood Urine Nitrate Urine Bilirubin Urine Urobilinogen Ur Leukocyte Esterase Urine RBC Urine WBC Ur Squamous Epith Cells Ur Renal Epithelial Cell Amorphous Sediment Urine Bacteria Hyaline Casts Ur Culture Indicated? Digoxin Chlamy pneumoniae PCR Adenovirus (PCR) B. pertussis DNA (PCR) B.parapertussis DNA PCR Coronavirus OC43 (PCR) Coronavirus HKU1 (PCR) Coronavirus 229E (PCR) SARS-CoV-2 (PCR) Coronavirus NL63 (PCR) Human Metapneumovir PCR Influenza Type A (PCR) Influenza Type B (PCR) M. pneumoniae (PCR) Parainfluenza 1 (PCR) Parainfluenza 2 (PCR) Parainfluenza 3 (PCR) Parainfluenza 4 (PCR) RSV (PCR) Entero/Rhino (PCR) 09/30/22 09/30/22 09/30/22 11:10 11:10 11:10 WBC RBC Hgb Hct MCV MCH MCHC RDW Plt Count Neut % (Auto) Lymph % (Auto) [place] % (Auto) Eos % (Auto) Baso % (Auto) Lymph # (Auto) [place] # (Auto) Baso # (Auto) Total Counted Seg Neutrophils % Band Neutrophils % Lymphocytes % (Manual) Monocytes % (Manual) Neutrophils # (Manual) Nucleated RBCs RBC Morphology Polychromasia Acanthocytes (Spur) ABG pH ABG pCO2 ABG pO2 ABG HCO3 ABG Total CO2 ABG O2 Saturation ABG Base Excess FiO2 Sodium Potassium Chloride Carbon Dioxide BUN Creatinine Estimated GFR BUN/Creatinine Ratio Glucose Lactate Calcium Total Bilirubin AST ALT Alkaline Phosphatase Total Creatine Kinase CK-MB (CK-2) CK-MB (CK-2) Rel Index Troponin I NT-Pro-B Natriuret Pep Total Protein Albumin Globulin Albumin/Globulin Ratio Lipase 161 Procalcitonin Urine Color Urine Appearance Urine pH Ur Specific [place] Urine Protein Urine Glucose (UA) Urine Ketones Urine Occult Blood Urine Nitrate Urine Bilirubin Urine Urobilinogen Ur Leukocyte Esterase Urine RBC Urine WBC Ur Squamous Epith Cells Ur Renal Epithelial Cell Amorphous Sediment Urine Bacteria Hyaline Casts Ur Culture Indicated? Digoxin < 0.4 L Chlamy pneumoniae PCR Not detected Adenovirus (PCR) Not detected B. pertussis DNA (PCR) Not detected B.parapertussis DNA PCR Not detected Coronavirus OC43 (PCR) Not detected Coronavirus HKU1 (PCR) Not detected Coronavirus 229E (PCR) Not detected SARS-CoV-2 (PCR) Detected H Coronavirus NL63 (PCR) Not detected Human Metapneumovir PCR Not detected Influenza Type A (PCR) Not detected Influenza Type B (PCR) Not detected M. pneumoniae (PCR) Not detected Parainfluenza 1 (PCR) Not detected Parainfluenza 2 (PCR) Not detected Parainfluenza 3 (PCR) Not detected Parainfluenza 4 (PCR) Not detected RSV (PCR) Not detected Entero/Rhino (PCR) Not detected 09/30/22 09/30/22 11:40 12:20 WBC RBC Hgb Hct MCV MCH MCHC RDW Plt Count Neut % (Auto) Lymph % (Auto) [place] % (Auto) Eos % (Auto) Baso % (Auto) Lymph # (Auto) [place] # (Auto) Baso # (Auto) Total Counted Seg Neutrophils % Band Neutrophils % Lymphocytes % (Manual) Monocytes % (Manual) Neutrophils # (Manual) Nucleated RBCs RBC Morphology Polychromasia Acanthocytes (Spur) ABG pH 7.19 L* ABG pCO2 13.7 L* ABG pO2 407 H* ABG HCO3 5 L ABG Total CO2 6 L ABG O2 Saturation 100 ABG Base Excess -23.0 L FiO2 100 Sodium Potassium Chloride Carbon Dioxide BUN Creatinine Estimated GFR BUN/Creatinine Ratio Glucose Lactate Calcium Total Bilirubin AST ALT Alkaline Phosphatase Total Creatine Kinase CK-MB (CK-2) CK-MB (CK-2) Rel Index Troponin I NT-Pro-B Natriuret Pep Total Protein Albumin Globulin Albumin/Globulin Ratio Lipase Procalcitonin Urine Color Yellow Urine Appearance Sl cloudy Urine pH 5.0 Ur Specific [place] >=1.030 H Urine Protein 2+ H Urine Glucose (UA) Negative Urine Ketones Negative Urine Occult Blood 2+ H Urine Nitrate Negative Urine Bilirubin Negative Urine Urobilinogen 0.2 Ur Leukocyte Esterase Negative Urine RBC 1-5/hpf Urine WBC 5-10/hpf H Ur Squamous Epith Cells 5-10 /hpf H Ur Renal Epithelial Cell 0-1/hpf Amorphous Sediment 1+ Urine Bacteria Occasional (0-1) Hyaline Casts 5-10/lpf Ur Culture Indicated? Specimen cultured Digoxin Chlamy pneumoniae PCR Adenovirus (PCR) B. pertussis DNA (PCR) B.parapertussis DNA PCR Coronavirus OC43 (PCR) Coronavirus HKU1 (PCR) Coronavirus 229E (PCR) SARS-CoV-2 (PCR) Coronavirus NL63 (PCR) Human Metapneumovir PCR Influenza Type A (PCR) Influenza Type B (PCR) M. pneumoniae (PCR) Parainfluenza 1 (PCR) Parainfluenza 2 (PCR) Parainfluenza 3 (PCR) Parainfluenza 4 (PCR) RSV (PCR) Entero/Rhino (PCR) [facility] Medical History Acute respiratory failure with hypoxia Biceps tendinitis Chronic low back pain Eczema (~2008) Eczematous dermatitis Facet arthritis, degenerative, L5-S1 level, lumbosacral spine Generalized anxiety disorder Herniated nucleus pulposus, L2-3 right Herpes Herpesviral infection, unspecified Medial collateral ligament sprain of knee Medicare annual wellness visit, initial Mixed hyperlipidemia Nausea & vomiting Oral cancer (~02/2021) Osteopenia (~2007) Osteopenia Pain in joint involving right pelvic region and thigh Pleural effusion, right RLL pneumonia Sepsis Trochanteric bursitis of both hips Surgical History Anesthesia Fracture of maxillary tuberosity (~02/11/21) History of hand surgery Family History Father Lung disease Mother History of heart disease Brother Pneumonia Grandfather Cancer Grandmother Cancer Social History household members: spouse Tobacco & Substance Use Smoking Status: Never smoker alcohol intake: current Assessment & Plan Assessment & Plan narrative: # severe lactic acidosis -LA 14 in ED, with initially normal blood pressure. Concern for intra-abdominal pathology such as ischemic bowel. -Dr. Christianson general surgery contemplating exploratory laparotomy, but patient then accepted to [facility] and will be transferred via helicoptor -s/p 3 L boluses -trend lactate -maintain MAP >65 -start bicarb drip at 100cc/hr # possible sepsis -WBC 17, LA 14, procal 0.79 -given dose of levaquin, vanc and flagyl in ED -blood and urine cultures pending # acute hypoxic respiratory failure -patient on HFNC, CXR shows resolved RLL infiltrate -cannot rule out PE, however given need for possible surgery will hold on anticoag -bedside POCUS difficult to assess for RV dilation for PE -maintain sats >94% # new-onset A-fib RVR -pt has no known history of A-fib, HR up to 170's in ED -start amio bolus with continous infusion # abdominal pain -lower quadrant crampy abd pain with severe LA concerning for ischemic bowel -unable to get CT as it is currenlty down for maintenance -general surgery following # COVID positive -tested negative as outpatient on rapid test, but positive on PCR in ED -start decadron, cannot give remdesivir with elevated LFT's # severely elevated LFT's -AST 2983 and ALT 1132 in ED, T-bili 1.7, and normal alk phos -abd US shows normal liver with distended gallbladder which may represent chronic cholecystitis -avoid hepatotoxic agents Code status is full code. COVID positive. Proxy is . I spent a total of 35 minutes of critical care time on this patient's care today; this time is exclusive of procedural time. Medicine will continue to follow. Thank you for allowing us to participate in the care of this patient. Should you have any questions, do not hesitate to speak with us directly or call us.
--- NOTE | 2022-09-30 13:39 | DI.RAD.S_ITS ---
PROCEDURE: XR CHEST 1V INDICATIONS: central line placement check TECHNIQUE: One view of the chest was acquired. COMPARISON: [facility], CR, XR CHEST 1V, 09/30/2022, 10:58. FINDINGS: Surgical changes and devices: Right internal jugular central venous catheter tip is in SVC. Lungs and pleura: Lungs are clear. No pleural effusions or pneumothorax. Mediastinum: Mediastinal contours appear normal. Heart size is enlarged. Bones and chest wall: No suspicious bony lesions. Overlying soft tissues appear unremarkable. IMPRESSION: Right internal jugular central venous catheter tip is in SVC. No acute cardiopulmonary pathology. Dictated by: Nickolas Manzano M.D. on 09/30/2022 at 14:32 Approved by: Nickolas Manzano M.D. on 09/30/2022 at 14:33
[2022-09-30] MEDS: DEXAMETHASONE 10 MG/ML VIAL 6 MG IV (13:58)
--- NOTE | 2022-09-30 14:03 | PC.NURSE ---
IV abx given prior to antibiotics as no access. Dr. Rouse aware and approved. 2nd blood culture sent [id number]
[2022-09-30] MEDS: AMIODARONE 150 MG/100 ML PIGGYBACK 600 MG IV (14:06)
--- NOTE | 2022-09-30 14:12 | PM.CALLCOV.1 ---
Call Coverage Note Note Date of Patient Contact: 09/30/22 Time of Patient Contact: 14:12 Narrative of Care Provided: 72-year-old woman admitted
[2022-09-30 14:13] LABS: Hemoglobin 9.8 g/dL (12.0-16.0); Mean Corpuscular HGB Conc 31.6 % (30-36); Mean Corpuscular Hemoglobin 31.6 PG (26-34); Mean Corpuscular Volume 100.1 fL (80-100); Platelet Count 140 X10^3/uL (150-400); Red Cell Distribution Width 15.8 % (11.6-14.8); White Blood Cell Count 17.7 X10^3/uL (4.5-11.0)
[2022-09-30 14:14] LABS: Add Manual Diff / Slide Review YES
[2022-09-30 14:23] LABS: INR 1.9 (0.9-1.3); Neutrophils Absolute Manual 13098 /uL (3000-5900); Nucleated Red Blood Cells 7 #/Diff; Total Cells Counted 100
[2022-09-30 14:24] LABS: Acanthocytes 1+; Burr Cells 2+
[2022-09-30 14:25] LABS: Polychromasia 1+
[2022-09-30 14:26] LABS: PTT Partial Thromboplastin Tim 28 SECONDS (26-36)
[2022-09-30 14:27] LABS: Magnesium 2.5 mg/dL (1.6-2.3)
[2022-09-30 14:29] LABS: Albumin Globulin Ratio 1.3 (1.0-2.8); Alkaline Phosphatase 87 U/L (38-126); BUN Creatinine Ratio 24.1 (6-22); Bilirubin Total 1.5 mg/dL (0.2-1.3); Blood Urea Nitrogen 65 mg/dL (7-17); Calcium 6.6 mg/dL (8.4-10.2); Chloride 101 mmol/L (98-107); Estimated Glomerular Filt Rate 18 mL/min (>60); Globulin 2.4 g/dL (1.7-4.1); Glucose 104 mg/dL (80-110); HEMOLYSIS < 15 (0-50); Potassium 4.8 mmol/L (3.4-5.1); Sodium 133 mmol/L (137-145); Total Protein 5.4 g/dL (6.3-8.2)
--- NOTE | 2022-09-30 14:36 | PC.NURSE ---
In consultation w/ [facility] transport, decision to intubate for airway protection and resp distress.
[2022-09-30] MEDS: DEXTROSE 5% IV (14:42)
[2022-09-30] MEDS: WATER IV (14:42)
[2022-09-30] MEDS: EPINEPHRINE IV (14:42)
[2022-09-30 14:49] LABS: Alanine Aminotransferase 928 IU/L (<35); Aspartate Aminotransferase 2614 IU/L (14-36); Lactate 2HR (Lactic Acid Rflx) 16.6 mmol/L (0.7-2.1); Troponin I 0.383 ng/mL (0.01-0.034)
[2022-09-30 14:50] LABS: Carbon Dioxide < 5 mmol/L (22-32)
[2022-09-30] MEDS: KETAMINE 500 MG/5 ML INJ 150 MG IV (14:50)
[2022-09-30] MEDS: SUCCINYLCHOLINE 200 MG/10 ML VIAL 150 MG IV (14:51)
--- NOTE | 2022-09-30 14:53 | DI.RAD.S_ITS ---
PROCEDURE: XR CHEST 1V INDICATIONS: post intubation chest x ray TECHNIQUE: One view of the chest was acquired. COMPARISON: [facility], , XR CHEST 1V, 09/30/2022, 13:43. [facility], CR, XR CHEST 1V, 09/30/2022, 10:58. FINDINGS: Surgical changes and devices: Right internal jugular catheter is seen with tip projecting over the superior vena cava. An endotracheal tube is seen terminating approximately 3 cm above the lorenzo. Enteric tube traverses the diaphragm with tip excluded from the field of view of this exam. Lungs and pleura: Mild diffuse interstitial prominence again seen. No focal airspace opacity. No pleural effusion or pneumothorax. Mediastinum: Cardiac silhouette is enlarged as before. Bones and chest wall: No suspicious bony lesions. Overlying soft tissues appear unremarkable. IMPRESSION: Endotracheal and enteric tube in satisfactory positions. Stable right internal jugular catheter. Approved by: Emir Barron M.D. on 09/30/2022 at 15:37
[2022-09-30] MEDS: fentaNYL 100 MCG/2 ML INJ 50 MCG IV (14:57)
[2022-09-30] MEDS: MIDAZOLAM 2 MG/2 ML VIAL (15:00)
--- NOTE | 2022-09-30 15:01 | PC.NURSE ---
updated and at bedside.
== END 2022-09-30 15:25 | disposition short-term general hospital (02) ==
PROVIDERS: Student in an Organized Health Care Education/Training Program; Emergency Provider Emergency Medicine; Family Provider Internal Medicine; PCP Internal Medicine
DX: I48.20 Chronic atrial fibrillation, unspecified (principal); Z79.01 Long term (current) use of anticoagulants; A41.9 Sepsis, unspecified organism; U07.1 COVID-19; N17.9 Acute kidney failure, unspecified; E87.20 Acidosis, unspecified; K76.9 Liver disease, unspecified; R10.9 Unspecified abdominal pain; R09.02 Hypoxemia; R07.9 Chest pain, unspecified
CPT/HCPCS: 31500; 36415; 36569; 36600; 71045; 76700; 80053; 80162; 81001; 82550; 82553; 82805; 83605; 83690; 83735; 83880; 84145; 84484; 85007; 85025; 85610; 85730; 87040; 87086; 87633; 93005; 94799; 96365; 96367; 96368; 96375; 96376; 99285; 99291; 99292; J0171; J0282; J0330; J1100; J1956; J2250; J2405; J3010